=== PATIENT | female | born 1980 | race Caucasian/White ===

== ENCOUNTER 2022-08-25 13:55 | Inpatient (IN) | payer OTHER, SELFPAY ==
--- NOTE | ~2022-08-25 | XR_ITS ---
EXAMINATION: XR ABDOMEN KUB CLINICAL INDICATION: Constipation, distention. COMPARISON: None available. TECHNIQUE: AP view of the abdomen. FINDINGS: There is moderate stool seen in the colon without any significant distention. The small bowel loops are normal caliber. No gross bony abnormality seen. XR/XR KUB IMPRESSION: Moderate constipation. No acute process seen.
[2022-08-25 14:05] VITALS: BP 110/72; PULSE 98; O2SAT 98
[2022-08-25 14:21] VITALS: BP 127/82; PULSE 94; RESP 17; TEMP 36.6; O2SAT 98; BMI 26.4
--- NOTE | 2022-08-25 14:31 | ED_ITS ---
HPI - General Adult General Chief complaint: Psychiatric Symptoms <DELMY Fuentes - Last Filed: 08/25/22 17:54> Stated complaint: PSYCH EVAL <DELMY Fuentes - Last Filed: 08/25/22 17:54> Time Seen by Provider: 08/25/22 14:30 <DELMY Fuentes - Last Filed: 08/25/22 17:54> Source: patient and EMS <DELMY Fuentes - Last Filed: 08/25/22 17:54> Mode of arrival: EMS <DELMY Fuentes - Last Filed: 08/25/22 17:54> Limitations: other (patient cannot reliably answer questions) <DELMY Fuentes - Last Filed: 08/25/22 17:54> History of Present Illness HPI narrative: Patient is a 42 year old assigned female at presenting to the em ergency department today via EMS [place] Patient unable to coherently answer questions secondary to mood / behavior. <DELMY Fuentes - Last Filed: 08/25/22 17:54> Relieving factors: none <DELMY Fuentes - Last Filed: 08/25/22 17:54> Exacerbating factors: none <DELMY Fuentes - Last Filed: 08/25/22 17:54> Related Data Home medications: Home Medications Medication Instructions Recorded Confirmed diazepam 5 mg tablet 5 mg PO TID PRN Anxiety 08/25/22 08/25/22 escitalopram oxalate 10 mg tablet 10 mg PO DAILY 08/25/22 08/25/22 metformin 500 mg tablet 500 mg PO DAILY 08/25/22 08/25/22 paliperidone palmitate 39 mg/0.25 39 mg IM Q4W 08/25/22 08/25/22 mL intramuscular syringe (Invega Sustenna) valbenazine 80 mg capsule 80 mg PO DAILY 08/25/22 08/25/22 (Ingrezza) <DELMY Fuentes - Last Filed: 08/25/22 17:54> Allergies/adverse reactions: Allergies Allergy/AdvReac Type Severity Reaction Status Date / Time moxifloxacin [From Avelox] Allergy Diarrhea Verified 08/25/22 19:11 <DELMY Fuentes - Last Filed: 08/25/22 17:54> Review of Systems Review of Systems: Yes Other (patient unable to answer questions secondary to behavior / mood) <DELMY Fuentes - Last Filed: 08/25/22 17:54> Constitutional: Constitutional: Reports no additional constitutional comp laints, Denies chills, Denies fever(s) and Denies night sweats <DELMY Fuentes - Last Filed: 08/25/22 17:54> Eyes: Eyes: Reports no additional eye complaints, Denies blurry vision, Denies change in vision, Denies diplopia, Denies eye discharge, Denies loss of vision and Denies eye pain <DELMY Fuentes - Last Filed: 08/25/22 17:54> ENT: Denies dizziness <DELMY Fuentes - Last Filed: 08/25/22 17:54> Cardiovascular: Cardiovascular: Reports no additional cardiovascular complaints, Denies chest pain, Denies lightheadedness, Denies Loss of Consciousness and Denies dyspnea <DELMY Fuentes - Last Filed: 08/25/22 17:54> Respiratory: Respiratory: Reports no additional respiratory complaints and Denies dyspnea <DELMY Fuentes - Last Filed: 08/25/22 17:54> Gastrointestinal: Gastrointestinal: Reports no additional gastrointestinal complaints, Denies abdominal pain, Denies melena, Denies hematochezia, Denies change in bowel habits and Denies change in stool character <DELMY Fuentes - Last Filed: 08/25/22 17:54> Genitourinary: Genitourinary: Denies hematuria, Denies urinary frequency, Denies dysuria, Denies urinary incontinence, Denies urinary hesitancy and Denies urinary urgency <DELMY Fuentes - Last Filed: 08/25/22 17:54> Musculoskeletal: Musculoskeletal: Reports no additional musculoskeletal complaints, Denies numbness and Denies tingling <DELMY Fuentes - Last Filed: 08/25/22 17:54> Neurologic: Denies dizziness, Denies loss of vision, Denies numbness and Denies tingling <DELMY Fuentes - Last Filed: 08/25/22 17:54> Psychiatric: Psychiatric: Reports no additional psychiatric complaints <DELMY Fuentes - Last Filed: 08/25/22 17:54> Endocrine: Endocrine: Reports no additional endocrine complaints <DELMY Fuentes - Last Filed: 08/25/22 17:54> Hematologic/Lymphatic: Hematologic/Lymphatic: Reports no additional hematologic/lymphatic complaints <DELMY Fuentes - Last Filed: 08/25/22 17:54> Allergic/Immunologic: Allergic/Immunologic: Reports no additional allergic/immunologic complaints <DELMY Fuentes - Last Filed: 08/25/22 17:54> PMFSH Past Medical History Attestation statement: The following information was validated with the patient. <DELMY Fuentes - Last Filed: 08/25/22 17:54> Source: old records reviewed and nursing notes reviewed <DELMY Fuentes Filed: 08/25/22 17:54> Social History Social History: Social History Advance Directives: No Advance Directives Information Provided: No <DELMY Fuentes - Last Filed: 08/25/22 17:54> Physical Exam ED Vital Signs: Vital Signs - 24 hr 08/25/22 14:21 Temperature 98 F Pulse Rate 94 Respiratory Rate 17 Blood Pressure 127/82 Pulse Oximetry 98 Oxygen Delivery Method Room Air BMI result Body Mass Index 26.4 <DELMY Fuentes - Last Filed: 08/25/22 17:54> Vital Signs - 24 hr 08/25/22 14:21 Temperature 98 F Pulse Rate 94 Respiratory Rate 17 Blood Pressure 127/82 Pulse Oximetry 98 Oxygen Delivery Method Room Air BMI result Body Mass Index 26.4 <Juancarlos Goldstein MD - Last Filed: 08/25/22 22:17> Vital Signs - 24 hr 08/25/22 14:21 Temperature 98 F Pulse Rate 94 Respiratory Rate 17 Blood Pressure 127/82 Pulse Oximetry 98 Oxygen Delivery Method Room Air BMI result Body Mass Index 26.4 <Maulik Topete - Last Filed: 08/26/22 00:57> Const General: cooperative, no acute distress, alert and awake <DELMY Fuentes - Last Filed: 08/25/22 17:54> Nutritional Appearance: well nourished <DELMY Fuentes - Last Filed: 08/25/22 17:54> Orientation/consciousness: patient oriented x3 <Graciela Esposito MT - Last Filed: 08/25/22 17:54> Limitations: no limitations <Graciela Esposito MT - Last Filed: 08/25/22 17:54> HENMT Head: Yes normal to inspection and Yes atraumatic <Graciela Esposito MT - Last Filed: 08/25/22 17:54> Ears: hearing grossly normal bilaterally and external ears normal <Graciela Monrema MT - Last Filed: 08/25/22 17:54> General nose exam: Normal external nose present, no nasal discharge noted and no epistaxis <Graciela Monrema MT - Last Filed: 08/25/22 17:54> Face and sinus: Yes normal facial exam, No abrasion and No laceration <Graciela Monrema MT - Last Filed: 08/25/22 17:54> Mouth: Normal oral and palatal mucosa present, no drooling and no muffled voice <Graciela Monrema MT - Last Filed: 08/25/22 17:54> Eyes General: appearance normal, both eyes and all related structures <Graciela Monrema MT - Last Filed: 08/25/22 17:54> Periorbital: periorbital findings normal <Graciela Monrema MT - Last Filed: 08/25/22 17:54> Eyelids: Yes eyelids normal <Graciela Monrema MT - Last Filed: 08/25/22 17:54> Conjunctivae: conjunctivae normal <Graciela Monrema MT - Last Filed: 08/25/22 17:54> Pupils: Equal, round and reactive pupils present <Graciela Monrema MT - Last Filed: 08/25/22 17:54> EOM: EOMs intact bilaterally <Graciela Monrema MT - Last Filed: 08/25/22 17:54> Neck Neck: Yes normal visual inspection, Yes full ROM and Yes no lymphadenopathy <Graciela Monrema MT - Last Filed: 08/25/22 17:54> Chest Chest palpation & inspection: normal inspection of the chest <Graciela Esposito MT - Last Filed: 08/25/22 17:54> Resp Effort & Inspection: normal respiratory effort and able to speak in complete sentences <Graciela MonDELMY hodgson - Last Filed: 08/25/22 17:54> GI Inspection: Yes normal to inspection <Graciela MonDELMY hodgson - Last Filed: 08/25/22 17:54> Neuro General: patient oriented x3 and moves all extremities <Graciela MonDELMY hodgson - Last Filed: 08/25/22 17:54> Cranial nerves: Yes Equal, round and reactive pupils present <Gracielamatilde MonDELMY hodgson - Last Filed: 08/25/22 17:54> Cognition (Neuro): normal cognition <Graciela MonDELMY hodgson - Last Filed: 08/25/22 17:54> Motor exam (neuro): 5/5 motor strength present throughout <Graciela MonDELMY hodgson - Last Filed: 08/25/22 17:54> Sensory Exam: Normal double simultaneous stimulation for sensation <Graciela MonDELMY hodgson - Last Filed: 08/25/22 17:54> Coordination: [id number] test normal <Gracielamatilde MonDELMY hodgson - Last Filed: 08/25/22 17:54> Extrem General: Yes normal to inspection, Yes full ROM and Yes capillary refill normal <Graciela MonDELMY hodgson - Last Filed: 08/25/22 17:54> Psych Affect: Animated affect present <Gracielamatilde MonDELMY hodgson - Last Filed: 08/25/22 17:54> Attitude: Avoids eye contact (attititude/behavior) <Gracielamatilde MonDELMY hodgson - Last F iled: 08/25/22 17:54> Thought process: Confabulating thought process present, Flight of ideas present and Illogical thought process present <DELMY Fuentes - Last Filed: 08/25/22 17:54> Thought content: Derealization present <Graciela DELMY Esposito - Last Filed: 08/25/22 17:54> Insight: Limited insight present (Psych) <DELMY Fuentes - Last Filed: 08/25/22 17:54> Judgement: Limited judgement present (Psych) <Graciela DELMY Esposito - Last Filed: 08/25/22 17:54> Course Reevaluation(s) Reevaluation #1: I was asked to the patient by nursing staff as it was reported the patient was becoming quite labile and aggressive at times. When I was initially talked with the patient she was moderate like a child and then she would quickly snap in be aggressive and scream and cuss at staff. The patient was medicated for her safety and the safety of others around her. <Maulik Topete - Last Filed: 08/26/22 00:57> Time: 00:56 <Maulik Topete - Last Filed: 08/26/22 00:57> Medications Administered Discontinued Medications Generic Name Dose Route Start Last Admin Trade Name Freq PRN Reason Stop Dose Admin Olanzapine 10 mg 08/25/22 20:13 08/25/22 23:20 Olanzapine 10 Mg Tablet PO 08/25/22 20:14 Not Given ONCE ONE <DELMY Fuentes - Last Filed: 08/25/22 17:54> Medications Administered Discontinued Medications Generic Name Dose Route Start Last Admin Trade Name Freq PRN Reason Stop Dose Admin Olanzapine 10 mg 08/25/22 20:13 08/25/22 23:20 Olanzapine 10 Mg Tablet PO 08/25/22 20:14 Not Given ONCE ONE <Juancarlos Goldstein MD - Last Filed: 08/25/22 22:17> Medications Administered Discontinued Medications Generic Name Dose Route Start Last Admin Trade Name Freq PRN Reason Stop Dose Admin Olanzapine 10 mg 08/25/22 20:13 08/25/22 23:20 Olanzapine 10 Mg Tablet PO 08/25/22 20:14 Not Given ONCE ONE <Maulik Topete - Last Filed: 08/26/22 00:57> Medical Decision Making Medical Decision Making MDM Narrative: Patient's labs showed slightly elevated WBC count of 12.2, otherwise unremarkable. Patient currently awaiting CARE team evaluation. <DELMY Fuentes - Last Filed: 08/25/22 17:54> Patient's labs showed slightly elevated WBC count of 12.2, otherwise unremarkable. Patient currently awaiting CARE team evaluation. 2216: Start physician observation. The patient was evaluated by the care team. Patient was placed on a Section 12. The patient will be placed in physician observation and kept in the emergency department Behavior[facility] Unit until appropriate disposition can be determined. <Juancarlos Goldstein MD - Last Filed: 08/25/22 22:17> Differential Diagnosis Differential Diagnoses: The differential diagnosis associated with the presentation includes <DELMY Fuentes - Last Filed: 08/25/22 17:54> acute psychosis <DELMY Fuentes - Last Filed: 08/25/22 17:54> Lab Data MDM Lab Attestation statement: I reviewed the patient's lab results. <DELMY Fuentes - Last Filed: 08/25/22 17:54> Result Diagrams: 08/25/22 15:21 08/25/22 15:24 <DELMY Fuentes - Last Filed: 08/25/22 17:54> Labs: Lab Results 08/25/22 08/25/22 08/25/22 Range/Units 15:21 15:24 16:45 WBC 12.2 H (4.8-10.8) X10*3/uL RBC 4.68 (4.20-5.50) X10*6/uL Hgb 13.7 (12.0-16.0) g/dl Hct 40.1 (37.0-47.0) % MCV 85.7 (80.0-98.0) fL MCH 29.3 (27.0-33.0) pg MCHC 34.2 (31.0-35.0) g/dl RDW 12.2 (11.0-16.0) % Plt Count 262 (160-400) X10*3/uL MPV 9.1 L (9.4-12.3) fL Immature Gran % (Auto) 0.3 (0.0-0.4) % Neut % (Auto) 72.1 (45-73) % Lymph % (Auto) 20.0 (20-40) % [place] % (Auto) 6.8 (2-11) % Eos % (Auto) 0.5 (0-4) % Baso % (Auto) 0.3 (0-2) % Lymph # (Auto) 2.5 (1.2-4.9) X10*3/uL [place] # (Auto) 0.8 (0.1-1.2) X10*3/uL Eos # (Auto) 0.1 (0.0-0.4) X10*3/uL Baso # (Auto) 0.0 (0.0-0.2) X10*3/uL Abs Immat Gran (auto) 0.04 H (0.00-0.03) X10*3/uL Absolute Neuts (auto) 8.8 H (2.0-8.3) x10*3/uL Absolute Nucleated RBC 0.000 (0.0-0.012) X10*3/uL Nucleated RBC % (auto) 0.0 (0.0-0.2) /100WBC Sodium 143 (135-145) mmol/L Potassium 3.9 (3.3-5.1) mmol/L Chloride 109 H (96-108) mmol/L Carbon Dioxide 25 (22-29) mmol/L Anion Gap 13 (12-20) BUN 14 (9-16) mg/dL Creatinine 0.79 (0.5-1.4) mg/dL Estim Creat Clear Calc 75.8 Estimated GFR > 60 Random Glucose 100 (60-115) mg/dL Calcium 9.2 (8.4-10.2) mg/dL Total Bilirubin 0.5 (0.0-1.0) mg/dL AST 15 (5-31) U/L ALT 19 (0-31) U/L Alkaline Phosphatase 72 (39-117) U/L Total Protein 6.4 L (6.5-8.0) g/dL Albumin 4.1 (3.5-5.0) g/dL Urine Color Yellow Urine Appearance Clear Urine pH 5.5 (5.0-9.0) Ur Specific [place] >= 1.030 H (1.005-1.025) Urine Protein Negative (Neg-Trace) mg/dL Urine Glucose (UA) Negative (Negative) mg/dL Urine Ketones Trace (Negative) mg/dL Urine Blood Trace H (Negative) Urine Nitrite Negative (Negative) Ur Leukocyte Esterase Negative (Negative) Urine RBC 0-2 (0-2) /HPF Urine WBC 0-5 (0-5) /HPF Ur Squamous Epith Cells 3-5 (0-2) /HPF Urine Bacteria None Seen (None Seen) Hyaline Casts 0-2 (0-2) /LPF Urine Test (NEGATIVE) Salicylates < 5.0 L (15-30) mg/dL Urine Opiates Screen (Not Detect) Urine Fentanyl Screen (Not Detect) Acetaminophen < 17 (<30) mcg/mL Ur Barbiturates Screen (Not Detect) Ur Phencyclidine Scrn (Not Detect) Ur Amphetamines Screen (Not Detect) U Benzodiazepines Scrn (Not Detect) Urine Cocaine Screen (Not Detect) U Marijuana (THC) Screen (Not Detect) Ethyl Alcohol < 10 mg/dL COVID-19 (KEVIN) (Negative) COVID-19 Clin Com 08/25/22 08/25/22 08/25/22 Range/Units 16:45 16:45 16:49 WBC (4.8-10.8) X10*3/uL RBC (4.20-5.50) X10*6/uL Hgb (12.0-16.0) g/dl Hct (37.0-47.0) % MCV (80.0-98.0) fL MCH (27.0-33.0) pg MCHC (31.0-35.0) g/dl RDW (11.0-16.0) % Plt Count (160-400) X10*3/uL MPV (9.4-12.3) fL Immature Gran % (Auto) (0.0-0.4) % Neut % (Auto) (45-73) % Lymph % (Auto) (20-40) % [place] % (Auto) (2-11) % Eos % (Auto) (0-4) % Baso % (Auto) (0-2) % Lymph # (Auto) (1.2-4.9) X10*3/uL [place] # (Auto) (0.1-1.2) X10*3/uL Eos # (Auto) (0.0-0.4) X10*3/uL Baso # (Auto) (0.0-0.2) X10*3/uL Abs Immat Gran (auto) (0.00-0.03) X10*3/uL Absolute Neuts (auto) (2.0-8.3) x10*3/uL Absolute Nucleated RBC (0.0-0.012) X10*3/uL Nucleated RBC % (auto) (0.0-0.2) /100WBC Sodium (135-145) mmol/L Potassium (3.3-5.1) mmol/L Chloride (96-108) mmol/L Carbon Dioxide (22-29) mmol/L Anion Gap (12-20) BUN (9-16) mg/dL Creatinine (0.5-1.4) mg/dL Estim Creat Clear Calc Estimated GFR Random Glucose (60-115) mg/dL Calcium (8.4-10.2) mg/dL Total Bilirubin (0.0-1.0) mg/dL AST (5-31) U/L ALT (0-31) U/L Alkaline Phosphatase (39-117) U/L Total Protein (6.5-8.0) g/dL Albumin (3.5-5.0) g/dL Urine Color Urine Appearance Urine pH (5.0-9.0) Ur Specific [place] (1.005-1.025) Urine Protein (Neg-Trace) mg/dL Urine Glucose (UA) (Negative) mg/dL Urine Ketones (Negative) mg/dL Urine Blood (Negative) Urine Nitrite (Negative) Ur Leukocyte Esterase (Negative) Urine RBC (0-2) /HPF Urine WBC (0-5) /HPF Ur Squamous Epith Cells (0-2) /HPF Urine Bacteria (None Seen) Hyaline Casts (0-2) /LPF Urine Test NEGATIVE (NEGATIVE) Salicylates (15-30) mg/dL Urine Opiates Screen Not Detected (Not Detect) Urine Fentanyl Screen POSITIVE H (Not Detect) Acetaminophen (<30) mcg/mL Ur Barbiturates Screen Not Detected (Not Detect) Ur Phencyclidine Scrn Not Detected (Not Detect) Ur Amphetamines Screen Not Detected (Not Detect) U Benzodiazepines Scrn Not Detected (Not Detect) Urine Cocaine Screen Not Detected (Not Detect) U Marijuana (THC) Screen Not Detected (Not Detect) Ethyl Alcohol mg/dL COVID-19 (KEVIN) Negative (Negative) COVID-19 Clin Com See Note <DELMY Fuentes - Last Filed: 08/25/22 17:54> Lab Results 08/25/22 08/25/22 08/25/22 Range/Units 15:21 15:24 16:45 WBC 12.2 H (4.8-10.8) X10*3/uL RBC 4.68 (4.20-5.50) X10*6/uL Hgb 13.7 (12.0-16.0) g/dl Hct 40.1 (37.0-47.0) % MCV 85.7 (80.0-98.0) fL MCH 29.3 (27.0-33.0) pg MCHC 34.2 (31.0-35.0) g/dl RDW 12.2 (11.0-16.0) % Plt Count 262 (160-400) X10*3/uL MPV 9.1 L (9.4-12.3) fL Immature Gran % (Auto) 0.3 (0.0-0.4) % Neut % (Auto) 72.1 (45-73) % Lymph % (Auto) 20.0 (20-40) % [place] % (Auto) 6.8 (2-11) % Eos % (Auto) 0.5 (0-4) % Baso % (Auto) 0.3 (0-2) % Lymph # (Auto) 2.5 (1.2-4.9) X10*3/uL [place] # (Auto) 0.8 (0.1-1.2) X10*3/uL Eos # (Auto) 0.1 (0.0-0.4) X10*3/uL Baso # (Auto) 0.0 (0.0-0.2) X10*3/uL Abs Immat Gran (auto) 0.04 H (0.00-0.03) X10*3/uL Absolute Neuts (auto) 8.8 H (2.0-8.3) x10*3/uL Absolute Nucleated RBC 0.000 (0.0-0.012) X10*3/uL Nucleated RBC % (auto) 0.0 (0.0-0.2) /100WBC Sodium 143 (135-145) mmol/L Potassium 3.9 (3.3-5.1) mmol/L Chloride 109 H (96-108) mmol/L Carbon Dioxide 25 (22-29) mmol/L Anion Gap 13 (12-20) BUN 14 (9-16) mg/dL Creatinine 0.79 (0.5-1.4) mg/dL Estim Creat Clear Calc 75.8 Estimated GFR > 60 Random Glucose 100 (60-115) mg/dL Calcium 9.2 (8.4-10.2) mg/dL Total Bilirubin 0.5 (0.0-1.0) mg/dL AST 15 (5-31) U/L ALT 19 (0-31) U/L Alkaline Phosphatase 72 (39-117) U/L Total Protein 6.4 L (6.5-8.0) g/dL Albumin 4.1 (3.5-5.0) g/dL Urine Color Yellow Urine Appearance Clear Urine pH 5.5 (5.0-9.0) Ur Specific [place] >= 1.030 H (1.005-1.025) Urine Protein Negative (Neg-Trace) mg/dL Urine Glucose (UA) Negative (Negative) mg/dL Urine Ketones Trace (Negative) mg/dL Urine Blood Trace H (Negative) Urine Nitrite Negative (Negative) Ur Leukocyte Esterase Negative (Negative) Urine RBC 0-2 (0-2) /HPF Urine WBC 0-5 (0-5) /HPF Ur Squamous Epith Cells 3-5 (0-2) /HPF Urine Bacteria None Seen (None Seen) Hyaline Casts 0-2 (0-2) /LPF Urine Test (NEGATIVE) Salicylates < 5.0 L (15-30) mg/dL Urine Opiates Screen (Not Detect) Urine Fentanyl Screen (Not Detect) Acetaminophen < 17 (<30) mcg/mL Ur Barbiturates Screen (Not Detect) Ur Phencyclidine Scrn (Not Detect) Ur Amphetamines Screen (Not Detect) U Benzodiazepines Scrn (Not Detect) Urine Cocaine Screen (Not Detect) U Marijuana (THC) Screen (Not Detect) Ethyl Alcohol < 10 mg/dL COVID-19 (KEVIN) (Negative) COVID-19 Clin Com 08/25/22 08/25/22 08/25/22 Range/Units 16:45 16:45 16:49 WBC (4.8-10.8) X10*3/uL RBC (4.20-5.50) X10*6/uL Hgb (12.0-16.0) g/dl Hct (37.0-47.0) % MCV (80.0-98.0) fL MCH (27.0-33.0) pg MCHC (31.0-35.0) g/dl RDW (11.0-16.0) % Plt Count (160-400) X10*3/uL MPV (9.4-12.3) fL Immature Gran % (Auto) (0.0-0.4) % Neut % (Auto) (45-73) % Lymph % (Auto) (20-40) % [place] % (Auto) (2-11) % Eos % (Auto) (0-4) % Baso % (Auto) (0-2) % Lymph # (Auto) (1.2-4.9) X10*3/uL [place] # (Auto) (0.1-1.2) X10*3/uL Eos # (Auto) (0.0-0.4) X10*3/uL Baso # (Auto) (0.0-0.2) X10*3/uL Abs Immat Gran (auto) (0.00-0.03) X10*3/uL Absolute Neuts (auto) (2.0-8.3) x10*3/uL Absolute Nucleated RBC (0.0-0.012) X10*3/uL Nucleated RBC % (auto) (0.0-0.2) /100WBC Sodium (135-145) mmol/L Potassium (3.3-5.1) mmol/L Chloride (96-108) mmol/L Carbon Dioxide (22-29) mmol/L Anion Gap (12-20) BUN (9-16) mg/dL Creatinine (0.5-1.4) mg/dL Estim Creat Clear Calc Estimated GFR Random Glucose (60-115) mg/dL Calcium (8.4-10.2) mg/dL Total Bilirubin (0.0-1.0) mg/dL AST (5-31) U/L ALT (0-31) U/L Alkaline Phosphatase (39-117) U/L Total Protein (6.5-8.0) g/dL Albumin (3.5-5.0) g/dL Urine Color Urine Appearance Urine pH (5.0-9.0) Ur Specific [place] (1.005-1.025) Urine Protein (Neg-Trace) mg/dL Urine Glucose (UA) (Negative) mg/dL Urine Ketones (Negative) mg/dL Urine Blood (Negative) Urine Nitrite (Negative) Ur Leukocyte Esterase (Negative) Urine RBC (0-2) /HPF Urine WBC (0-5) /HPF Ur Squamous Epith Cells (0-2) /HPF Urine Bacteria (None Seen) Hyaline Casts (0-2) /LPF Urine Test NEGATIVE (NEGATIVE) Salicylates (15-30) mg/dL Urine Opiates Screen Not Detected (Not Detect) Urine Fentanyl Screen POSITIVE H (Not Detect) Acetaminophen (<30) mcg/mL Ur Barbiturates Screen Not Detected (Not Detect) Ur Phencyclidine Scrn Not Detected (Not Detect) Ur Amphetamines Screen Not Detected (Not Detect) U Benzodiazepines Scrn Not Detected (Not Detect) Urine Cocaine Screen Not Detected (Not Detect) U Marijuana (THC) Screen Not Detected (Not Detect) Ethyl Alcohol mg/dL COVID-19 (KEVIN) Negative (Negative) COVID-19 Clin Com See Note <Juancarlos Goldstein MD - Last Filed: 08/25/22 22:17> Lab Results 08/25/22 08/25/22 08/25/22 Range/Units 15:21 15:24 16:45 WBC 12.2 H (4.8-10.8) X10*3/uL RBC 4.68 (4.20-5.50) X10*6/uL Hgb 13.7 (12.0-16.0) g/dl Hct 40.1 (37.0-47.0) % MCV 85.7 (80.0-98.0) fL MCH 29.3 (27.0-33.0) pg MCHC 34.2 (31.0-35.0) g/dl RDW 12.2 (11.0-16.0) % Plt Count 262 (160-400) X10*3/uL MPV 9.1 L (9.4-12.3) fL Immature Gran % (Auto) 0.3 (0.0-0.4) % Neut % (Auto) 72.1 (45-73) % Lymph % (Auto) 20.0 (20-40) % [place] % (Auto) 6.8 (2-11) % Eos % (Auto) 0.5 (0-4) % Baso % (Auto) 0.3 (0-2) % Lymph # (Auto) 2.5 (1.2-4.9) X10*3/uL [place] # (Auto) 0.8 (0.1-1.2) X10*3/uL Eos # (Auto) 0.1 (0.0-0.4) X10*3/uL Baso # (Auto) 0.0 (0.0-0.2) X10*3/uL Abs Immat Gran (auto) 0.04 H (0.00-0.03) X10*3/uL Absolute Neuts (auto) 8.8 H (2.0-8.3) x10*3/uL Absolute Nucleated RBC 0.000 (0.0-0.012) X10*3/uL Nucleated RBC % (auto) 0.0 (0.0-0.2) /100WBC Sodium 143 (135-145) mmol/L Potassium 3.9 (3.3-5.1) mmol/L Chloride 109 H (96-108) mmol/L Carbon Dioxide 25 (22-29) mmol/L Anion Gap 13 (12-20) BUN 14 (9-16) mg/dL Creatinine 0.79 (0.5-1.4) mg/dL Estim Creat Clear Calc 75.8 Estimated GFR > 60 Random Glucose 100 (60-115) mg/dL Calcium 9.2 (8.4-10.2) mg/dL Total Bilirubin 0.5 (0.0-1.0) mg/dL AST 15 (5-31) U/L ALT 19 (0-31) U/L Alkaline Phosphatase 72 (39-117) U/L Total Protein 6.4 L (6.5-8.0) g/dL Albumin 4.1 (3.5-5.0) g/dL Urine Color Yellow Urine Appearance Clear Urine pH 5.5 (5.0-9.0) Ur Specific [place] >= 1.030 H (1.005-1.025) Urine Protein Negative (Neg-Trace) mg/dL Urine Glucose (UA) Negative (Negative) mg/dL Urine Ketones Trace (Negative) mg/dL Urine Blood Trace H (Negative) Urine Nitrite Negative (Negative) Ur Leukocyte Esterase Negative (Negative) Urine RBC 0-2 (0-2) /HPF Urine WBC 0-5 (0-5) /HPF Ur Squamous Epith Cells 3-5 (0-2) /HPF Urine Bacteria None Seen (None Seen) Hyaline Casts 0-2 (0-2) /LPF Urine Test (NEGATIVE) Salicylates < 5.0 L (15-30) mg/dL Urine Opiates Screen (Not Detect) Urine Fentanyl Screen (Not Detect) Acetaminophen < 17 (<30) mcg/mL Ur Barbiturates Screen (Not Detect) Ur Phencyclidine Scrn (Not Detect) Ur Amphetamines Screen (Not Detect) U Benzodiazepines Scrn (Not Detect) Urine Cocaine Screen (Not Detect) U Marijuana (THC) Screen (Not Detect) Ethyl Alcohol < 10 mg/dL COVID-19 ([facility]) (Negative) COVID-19 Clin Com 08/25/22 08/25/22 08/25/22 Range/Units 16:45 16:45 16:49 WBC (4.8-10.8) X10*3/uL RBC (4.20-5.50) X10*6/uL Hgb (12.0-16.0) g/dl Hct (37.0-47.0) % MCV (80.0-98.0) fL MCH (27.0-33.0) pg MCHC (31.0-35.0) g/dl RDW (11.0-16.0) % Plt Count (160-400) X10*3/uL MPV (9.4-12.3) fL Immature Gran % (Auto) (0.0-0.4) % Neut % (Auto) (45-73) % Lymph % (Auto) (20-40) % [place] % (Auto) (2-11) % Eos % (Auto) (0-4) % Baso % (Auto) (0-2) % Lymph # (Auto) (1.2-4.9) X10*3/uL [place] # (Auto) (0.1-1.2) X10*3/uL Eos # (Auto) (0.0-0.4) X10*3/uL Baso # (Auto) (0.0-0.2) X10*3/uL Abs Immat Gran (auto) (0.00-0.03) X10*3/uL Absolute Neuts (auto) (2.0-8.3) x10*3/uL Absolute Nucleated RBC (0.0-0.012) X10*3/uL Nucleated RBC % (auto) (0.0-0.2) /100WBC Sodium (135-145) mmol/L Potassium (3.3-5.1) mmol/L Chloride (96-108) mmol/L Carbon Dioxide (22-29) mmol/L Anion Gap (12-20) BUN (9-16) mg/dL Creatinine (0.5-1.4) mg/dL Estim Creat Clear Calc Estimated GFR Random Glucose (60-115) mg/dL Calcium (8.4-10.2) mg/dL Total Bilirubin (0.0-1.0) mg/dL AST (5-31) U/L ALT (0-31) U/L Alkaline Phosphatase (39-117) U/L Total Protein (6.5-8.0) g/dL Albumin (3.5-5.0) g/dL Urine Color Urine Appearance Urine pH (5.0-9.0) Ur Specific [place] (1.005-1.025) Urine Protein (Neg-Trace) mg/dL Urine Glucose (UA) (Negative) mg/dL Urine Ketones (Negative) mg/dL Urine Blood (Negative) Urine Nitrite (Negative) Ur Leukocyte Esterase (Negative) Urine RBC (0-2) /HPF Urine WBC (0-5) /HPF Ur Squamous Epith Cells (0-2) /HPF Urine Bacteria (None Seen) Hyaline Casts (0-2) /LPF Urine Test NEGATIVE (NEGATIVE) Salicylates (15-30) mg/dL Urine Opiates Screen Not Detected (Not Detect) Urine Fentanyl Screen POSITIVE H (Not Detect) Acetaminophen (<30) mcg/mL Ur Barbiturates Screen Not Detected (Not Detect) Ur Phencyclidine Scrn Not Detected (Not Detect) Ur Amphetamines Screen Not Detected (Not Detect) U Benzodiazepines Scrn Not Detected (Not Detect) Urine Cocaine Screen Not Detected (Not Detect) U Marijuana (THC) Screen Not Detected (Not Detect) Ethyl Alcohol mg/dL COVID-19 (KEVIN) Negative (Negative) COVID-19 Clin Com See Note <Maulik Topete - Last Filed: 08/26/22 00:57> Discharge Plan Discharge Clinical Impression: Acute psychosis <DELMY Fuentes - Last Filed: 08/25/22 17:54> Patient Disposition: Still a Patient <DELMY Fuentes - Last Filed: 08/25/22 17:54> Prescriptions: No Action metformin 500 mg tablet 500 mg PO DAILY diazepam 5 mg tablet 5 mg PO TID PRN (Reason: Anxiety) escitalopram oxalate 10 mg tablet 10 mg PO DAILY Invega Sustenna 39 mg/0.25 mL syringe 39 mg IM Q4W Ingrezza 80 mg capsule 80 mg PO DAILY <DELMY Fuentes - Last Filed: 08/25/22 17:54>
[2022-08-25 15:35] LABS: MANUAL DIFF FLAG NO
[2022-08-25 15:36] LABS: Basophils Percent Auto 0.3 % (0-2); Eosinophils Absolute Auto 0.1 X10*3/uL (0.0-0.4); Eosinophils Percent Auto 0.5 % (0-4); Hematocrit 40.1 % (37.0-47.0); Hemoglobin 13.7 g/dl (12.0-16.0); Imm Gran Abs Auto 0.04 X10*3/uL (0.00-0.03); Imm Gran Pct Auto 0.3 % (0.0-0.4); Lymphocytes Absolute Auto 2.5 X10*3/uL (1.2-4.9); Mean Corpuscular HGB Conc 34.2 g/dl (31.0-35.0); Mean Corpuscular Hemoglobin 29.3 pg (27.0-33.0); Mean Corpuscular Volume 85.7 fL (80.0-98.0); Mean Platelet Volume 9.1 fL (9.4-12.3); Monocytes Absolute Auto 0.8 X10*3/uL (0.1-1.2); Monocytes Percent Auto 6.8 % (2-11); Neutrophils Absolute Auto 8.8 x10*3/uL (2.0-8.3); Neutrophils Percent Auto 72.1 % (45-73); Platelet Count 262 X10*3/uL (160-400); Red Blood Count 4.68 X10*6/uL (4.20-5.50); Red Cell Distribution Width 12.2 % (11.0-16.0); White Blood Count 12.2 X10*3/uL (4.8-10.8)
[2022-08-25 15:57] LABS: Alanine Aminotransferase 19 U/L (0-31); Albumin Level 4.1 g/dL (3.5-5.0); Alkaline Phosphatase 72 U/L (39-117); Anion Gap 13 (12-20); Aspartate Amino Transferase 15 U/L (5-31); Bilirubin Total 0.5 mg/dL (0.0-1.0); Blood Urea Nitrogen 14 mg/dL (9-16); Calcium 9.2 mg/dL (8.4-10.2); Carbon Dioxide 25 mmol/L (22-29); Chloride 109 mmol/L (96-108); Creatinine Clr Calc Pharmacy 75.8; Estimated Glomerular Filt Rate > 60; Ethanol < 10 mg/dL; Glucose Random 100 mg/dL (60-115); Potassium 3.9 mmol/L (3.3-5.1); Salicylate < 5.0 mg/dL (15-30); Sodium 143 mmol/L (135-145); Total Protein 6.4 g/dL (6.5-8.0)
--- NOTE | 2022-08-25 16:13 | PC.NURSE ---
Pt appears tearful, babbling nonsensically to herself in her room. Has attempted to strip naked a few times with successful re-direction.
[2022-08-25 16:37] LABS: Acetaminophen LAB < 17 mcg/mL (<30)
[2022-08-25 17:09] LABS: Appearance Urine Clear; Color Urine Yellow; Glucose Urine UA Negative (Negative); Leukocyte Esterase Urine Negative (Negative); Nitrite Urine Negative (Negative); PH 5.5 (5.0-9.0); Specific Gravity - Urine >= 1.030 (1.005-1.025); UMIC TRIGGER UA YES; Urine Blood Trace (Negative); Urine Ketones Trace mg/dL (Negative); Urine Protein Negative (Neg-Trace)
[2022-08-25 17:10] LABS: UPreg QC Valid YES; Urine Pregnancy NEGATIVE (NEGATIVE)
[2022-08-25 17:15] LABS: Bacteria Urine None Seen (None Seen); Hyaline Casts Urine 0-2 /LPF (0-2); RBC Urine 0-2 /HPF (0-2); WBC Urine 0-5 /HPF (0-5)
[2022-08-25 17:16] LABS: Amphetamine Screen Urine Not Detected (Not Detect); Barbiturates, Urine Not Detected (Not Detect); Benzodiazepines Screen Urine Not Detected (Not Detect); Cannabinoid Screen Urine Not Detected (Not Detect); Cocaine Screen Urine Not Detected (Not Detect); Fentanyl, urine POSITIVE (Not Detect); Opiate Screen Urine Not Detected (Not Detect); Phencyclidine Screen Urine Not Detected (Not Detect)
--- NOTE | 2022-08-25 17:17 | PC.NURSE ---
Pt continues to mumble to herself. Attempting to leave unit, redirected back to common area. Often intruding into other patient's personal space, redirected to sit down in chair away from other patients.
[2022-08-25 17:30] LABS: COVID-19 Test Negative (Negative); IDNOW Serial# 08D9AD1C
[2022-08-26] VITALS (7 sets, daily range): BP systolic 116–141; BP diastolic 76–91; PULSE 73–83; RESP 16–17; TEMP 36.6–36.7; O2SAT 99
--- NOTE | 2022-08-26 | ECG_ITS ---
Test Reason : PSYCH MEDS Blood Pressure : / mmHG Vent. Rate : 083 BPM Atrial Rate : 083 BPM P-R Int : 114 ms QRS Dur : 064 ms QT Int : 340 ms P-R-T Axes : 051 055 021 degrees QTc Int : 399 ms Normal sinus rhythm Normal ECG No previous ECGs available Referred By: Silvia Fallon Electronically Signed By:THERESA MCKEON
[2022-08-26] MEDS: LORazepam 2 MG/ML VIAL IM (01:00)
[2022-08-26] MEDS: Haloperidol Lactate 5 MG/ML VIAL IM ×2 (01:00→07:34)
--- NOTE | 2022-08-26 01:11 | PC.NURSE ---
Patient exhibits increased aggression, combative with staff member, verbally abusive towards staff member, thought content paranoid, thought process disorganize and tangential, loud and disruptive, actively self dialoguing, continously refuinf PO medication, provider notified/ordered/Ativan 2 mg IM and Haldol 5 mg IM/administered at 0100 pending effect, patient is on 1:1 safety protocol, VSS, Patient was assessed by care team, disposition section 12 inpatient bed search, will continue to monitor.
--- NOTE | 2022-08-26 06:10 | PC.NURSE ---
Patient just woke up, intermittently yelling screaming, behavior redirectable, disposition is section 12 inpatient bed search per care team, VSS, will continue to monitor.
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
[2022-08-26] MEDS: LORazepam 2 MG/ML VIAL 1 MG IM ×2 (07:35)
--- NOTE | 2022-08-26 08:10 | PC.NURSE ---
Behavior improved post medication still needs some redirection will CTM
--- NOTE | 2022-08-26 08:26 | PC.NURSE ---
Care team at bedside attempting to talk to patient will CTM
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
[2022-08-27] MEDS: Paliperidone ER 3 MG TAB.ER.24 PO ×2 (08:21→17:35)
--- NOTE | 2022-08-27 09:10 | PC.NURSE ---
Pt was placed on 5 minute safety checks due to intrusive behaviors.
[2022-08-27] MEDS: metFORMIN HCl 500 MG TABLET PO (11:26)
[2022-08-27] MEDS: OLANZapine 5 MG TABLET PO (11:26)
[2022-08-27] MEDS: diazePAM 5 MG TABLET PO ×2 (12:22→17:35)
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
[2022-08-27] MEDS: OLANZapine 10 MG VIAL IM (15:05)
[2022-08-27] MEDS: LORazepam 2 MG/ML VIAL IM (15:06)
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
[2022-08-28] MEDS: OLANZapine 10 MG VIAL IM (07:15)
[2022-08-28] MEDS: LORazepam 2 MG/ML VIAL IM (07:17)
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
[2022-08-28] MEDS: chlorproMAZINE HCl 25 MG TABLET 50 MG PO (16:05)
[2022-08-28 16:25] VITALS: BP 121/75; PULSE 84
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
[2022-08-29 08:45] VITALS: RESP 18
[2022-08-29] MEDS: chlorproMAZINE HCl 25 MG TABLET 50 MG PO (17:57)
[2022-08-29] MEDS: Paliperidone ER 3 MG TAB.ER.24 PO (17:57)
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
[2022-08-30 08:00] VITALS: RESP 18
[2022-08-30] MEDS: chlorproMAZINE HCl 25 MG TABLET 50 MG PO ×3 (11:52→23:01)
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
[2022-08-30 18:00] VITALS: BP 104/63; PULSE 77; RESP 16; TEMP 35.7; O2SAT 99
[2022-08-30] MEDS: Paliperidone ER 3 MG TAB.ER.24 PO (23:01)
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
--- NOTE | 2022-08-31 08:34 | PC.NURSE ---
Addendum entered by Mariama Cannon RN 08/31/22 08:37: pt refused AM vitals Original Note: pt refused all AM medications
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
[2022-08-31 15:50] VITALS: TEMP 36.6
[2022-08-31] MEDS: Nicotine Polacrilex 2 MG GUM 4 MG BUCCAL ×3 (17:25→22:41)
--- NOTE | 2022-09-01 08:24 | PC.NURSE ---
pt refused morning vitals and scheduled medications. F*ck off, I'm not taking that sh*it dumb b*itch .
[2022-09-01] MEDS: chlorproMAZINE HCl 25 MG TABLET 50 MG PO (11:27)
[2022-09-01] MEDS: metFORMIN HCl 500 MG TABLET PO (11:28)
[2022-09-01] MEDS: Paliperidone ER 3 MG TAB.ER.24 PO (11:28)
[2022-09-01] MEDS: Divalproex Sodium ER 250 MG TAB.ER.24H 750 MG PO (11:28)
[2022-09-01] MEDS: Nicotine Polacrilex 2 MG GUM 4 MG BUCCAL (13:26)
--- NOTE | 2022-09-01 13:30 | PC.NURSE ---
pt requested nicotine gum and snatched package from nurses hand and walked back to room. Pt was followed to room and nicotine gum package was found on table and was removed. Pt then walked out of room completely naked and stood in [place] outside asking for the nicotine gum back. pt was directed to return to room and nicotine gum would be given. Pt was redirectable and agreeable although shouting fuck you, dumb bitch, what are you the gum natzi?
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
[2022-09-01] MEDS: OLANZapine ODT 10 MG TAB.RAPDIS 20 MG TRANSLINGU (17:32)
[2022-09-02] MEDS: chlorproMAZINE HCl 25 MG TABLET 50 MG PO ×2 (09:59→13:41)
[2022-09-02] MEDS: diazePAM 5 MG TABLET PO ×2 (10:00→13:41)
[2022-09-02] MEDS: metFORMIN HCl 500 MG TABLET PO (10:00)
[2022-09-02] MEDS: Nicotine Polacrilex 2 MG GUM 4 MG BUCCAL ×5 (10:05→22:05)
[2022-09-02] MEDS: LORazepam 2 MG/ML VIAL IM (10:20)
[2022-09-02] MEDS: diphenhydrAMINE HCL 50 MG/ML VIAL IM (10:21)
[2022-09-02] MEDS: Haloperidol Lactate 5 MG/ML VIAL IM (10:21)
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
[2022-09-02] MEDS: Paliperidone ER 3 MG TAB.ER.24 PO (10:44)
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
[2022-09-02] MEDS: OLANZapine ODT 10 MG TAB.RAPDIS TRANSLINGU ×2 (13:42→20:08)
[2022-09-02] MEDS: traZODone HCL 50 MG TABLET PO (20:07)
[2022-09-02 21:04] VITALS: BP 116/78; PULSE 76; RESP 16; TEMP 36.7; O2SAT 98
[2022-09-03] MEDS: diazePAM 5 MG TABLET PO ×2 (00:47→07:56)
[2022-09-03] MEDS: chlorproMAZINE HCl 25 MG TABLET 50 MG PO ×2 (00:47→04:20)
[2022-09-03] MEDS: traZODone HCL 50 MG TABLET PO ×2 (01:39→22:28)
[2022-09-03] MEDS: Nicotine Polacrilex 2 MG GUM 4 MG BUCCAL ×3 (04:23→10:38)
--- NOTE | 2022-09-03 04:29 | PC.NURSE ---
Pt woke at 04:25, was verbally abusive to staff and requested meds. pt took po prn and was offered nicotine gum which she threw at RN and took after it was picked up.
[2022-09-03] MEDS: OLANZapine ODT 10 MG TAB.RAPDIS TRANSLINGU ×2 (07:56→22:28)
[2022-09-03] MEDS: metFORMIN HCl 500 MG TABLET PO (07:56)
[2022-09-03 08:30] VITALS: PULSE 102; TEMP 36.1; O2SAT 100
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
[2022-09-03] MEDS: LORazepam 1 MG TABLET 2 MG PO (16:54)
[2022-09-04 06:00] VITALS: RESP 18
[2022-09-04] MEDS: HaloperidoL 5 MG TABLET PO ×2 (07:45→13:49)
[2022-09-04] MEDS: diazePAM 5 MG TABLET PO ×2 (07:45→13:49)
[2022-09-04] MEDS: OLANZapine ODT 10 MG TAB.RAPDIS TRANSLINGU ×2 (07:45→19:45)
[2022-09-04] MEDS: Nicotine Polacrilex 2 MG GUM 4 MG BUCCAL ×5 (08:23→19:46)
[2022-09-04] MEDS: LORazepam 1 MG TABLET 2 MG PO ×2 (08:30→19:45)
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
[2022-09-04] MEDS: OLANZapine ODT 10 MG TAB.RAPDIS 5 MG TRANSLINGU (12:03)
[2022-09-04 16:46] VITALS: RESP 16
[2022-09-04] MEDS: traZODone HCL 50 MG TABLET PO (19:46)
[2022-09-04] MEDS: chlorproMAZINE HCl 25 MG TABLET 50 MG PO (19:46)
[2022-09-05 06:00] VITALS: BP 129/78; PULSE 101; RESP 15; TEMP 36.2; O2SAT 99
[2022-09-05] MEDS: OLANZapine ODT 10 MG TAB.RAPDIS TRANSLINGU (08:15)
[2022-09-05] MEDS: metFORMIN HCl 500 MG TABLET PO (08:15)
--- NOTE | 2022-09-05 08:43 | PC.NURSE ---
Pt initially refused zyprexa and metformin throwing them in the trash. Pt accepted her depakote. Approx 10-15 mins later when t/w was obtaining pt's VS, pt asked for her pills at which time pt took both pills.
[2022-09-05] MEDS: Nicotine Polacrilex 2 MG GUM 4 MG BUCCAL ×2 (09:34→20:13)
[2022-09-05] MEDS: LORazepam 1 MG TABLET 2 MG PO (11:31)
[2022-09-05] MEDS: chlorproMAZINE HCl 25 MG TABLET 50 MG PO (11:31)
--- NOTE | 2022-09-05 11:33 | PC.NURSE ---
Pt requesting her prns and then becoming agitated that both PRNs were 2 pills You're going to overdose me I only want 1 this RN tried to explain the doses are all or nothing and cannot be split. Pt took both ativan pills, only took one thorazine pill, refused second pill only receiving 25mg of thorazine instead of the 50mg.
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
[2022-09-05] MEDS: OLANZapine ODT 10 MG TAB.RAPDIS 15 MG TRANSLINGU (18:58)
[2022-09-06] MEDS: Acetaminophen 325 MG TABLET 650 MG PO (04:48)
[2022-09-06 06:00] VITALS: BP 128/68; PULSE 78; RESP 18; TEMP 37; O2SAT 98
[2022-09-06] MEDS: OLANZapine ODT 10 MG TAB.RAPDIS 15 MG TRANSLINGU ×2 (08:40→17:24)
[2022-09-06] MEDS: chlorproMAZINE HCl 25 MG TABLET 50 MG PO (09:24)
[2022-09-06] MEDS: diazePAM 5 MG TABLET PO ×2 (09:25→19:25)
[2022-09-06 09:34] LABS: Creatinine Clr Calc Pharmacy 65.1; Estimated Glomerular Filt Rate > 60
[2022-09-06] MEDS: chlorproMAZINE HCl 100 MG TABLET PO (11:40)
[2022-09-06] MEDS: Nicotine Polacrilex 2 MG GUM 4 MG BUCCAL (13:03)
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
[2022-09-06] MEDS: LORazepam 1 MG TABLET 2 MG PO (19:25)
[2022-09-07] MEDS: traZODone HCL 50 MG TABLET PO (03:32)
[2022-09-07 08:35] VITALS: BP 122/88; PULSE 102; RESP 18; TEMP 36.1; O2SAT 99
[2022-09-07] MEDS: OLANZapine ODT 10 MG TAB.RAPDIS 15 MG TRANSLINGU (08:42)
[2022-09-07] MEDS: metFORMIN HCl 500 MG TABLET PO (08:42)
[2022-09-07] MEDS: LORazepam 1 MG TABLET 2 MG PO (10:14)
[2022-09-07] MEDS: diazePAM 5 MG TABLET PO (12:13)
[2022-09-07] MEDS: chlorproMAZINE HCl 100 MG TABLET PO (13:25)
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
--- NOTE | 2022-09-07 23:54 | PC.NURSE ---
This keno writer/runner tried to wake patient up for her HS medications, but patient was sound asleep.
[2022-09-08] MEDS: OLANZapine ODT 10 MG TAB.RAPDIS 15 MG TRANSLINGU ×3 (01:57→16:16)
[2022-09-08 08:25] VITALS: BP 116/73; PULSE 99; RESP 16; TEMP 36.7; O2SAT 98
[2022-09-08] MEDS: Nicotine Polacrilex 2 MG GUM 4 MG BUCCAL ×2 (09:11→11:45)
[2022-09-08] MEDS: LORazepam 1 MG TABLET 2 MG PO (09:32)
[2022-09-08] MEDS: diazePAM 5 MG TABLET PO (09:40)
--- NOTE | 2022-09-08 09:41 | PC.NURSE ---
Patient took 1mg of 2mg ordered PRN dose and was witnessed intentionally vomiting it up.
[2022-09-08] MEDS: chlorproMAZINE HCl 100 MG TABLET PO (10:11)
[2022-09-08] MEDS: Acetaminophen 325 MG TABLET 650 MG PO (12:35)
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
[2022-09-09 06:00] VITALS: RESP 16
[2022-09-09] MEDS: OLANZapine ODT 10 MG TAB.RAPDIS 15 MG TRANSLINGU ×2 (08:25→18:14)
[2022-09-09] MEDS: chlorproMAZINE HCl 25 MG TABLET PO ×3 (08:25→16:21)
[2022-09-09] MEDS: diazePAM 5 MG TABLET PO (08:25)
[2022-09-09] MEDS: Nicotine Polacrilex 2 MG GUM 4 MG BUCCAL ×4 (09:19→21:28)
[2022-09-09] MEDS: chlorproMAZINE HCl 100 MG TABLET PO (11:52)
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
[2022-09-09 16:53] VITALS: RESP 16
[2022-09-09] MEDS: chlorproMAZINE HCl 25 MG TABLET 50 MG PO (18:20)
[2022-09-10 08:06] VITALS: BP 125/73; PULSE 97; RESP 16; TEMP 36.8; O2SAT 99
[2022-09-10] MEDS: chlorproMAZINE HCl 25 MG TABLET 50 MG PO ×2 (08:30→18:26)
[2022-09-10] MEDS: OLANZapine ODT 10 MG TAB.RAPDIS 15 MG TRANSLINGU ×2 (08:31→17:43)
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
[2022-09-10] MEDS: Acetaminophen 325 MG TABLET 650 MG PO ×2 (13:12→19:48)
[2022-09-10] MEDS: chlorproMAZINE HCl 100 MG TABLET PO (13:29)
[2022-09-10 15:48] VITALS: BP 111/67; PULSE 108
[2022-09-10] MEDS: Nicotine Polacrilex 2 MG GUM 4 MG BUCCAL ×2 (17:44→18:26)
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
[2022-09-11 08:18] VITALS: BP 124/72; PULSE 99; RESP 16; TEMP 36.3; O2SAT 97
[2022-09-11] MEDS: OLANZapine ODT 10 MG TAB.RAPDIS 15 MG TRANSLINGU ×2 (08:20→17:29)
[2022-09-11] MEDS: chlorproMAZINE HCl 25 MG TABLET 50 MG PO ×2 (08:20→17:29)
[2022-09-11] MEDS: Nicotine Polacrilex 2 MG GUM 4 MG BUCCAL (11:05)
[2022-09-11 16:09] VITALS: BP 119/74; PULSE 98
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
[2022-09-12 08:04] VITALS: BP 129/77; PULSE 111; RESP 20; TEMP 36.1; O2SAT 99
[2022-09-12] MEDS: chlorproMAZINE HCl 25 MG TABLET 50 MG PO ×3 (08:11→16:22)
[2022-09-12] MEDS: OLANZapine ODT 10 MG TAB.RAPDIS 15 MG TRANSLINGU ×2 (08:11→16:22)
[2022-09-12] MEDS: Nicotine Polacrilex 2 MG GUM 4 MG BUCCAL ×5 (09:38→19:16)
[2022-09-12] MEDS: Acetaminophen 325 MG TABLET 650 MG PO ×2 (11:17→18:27)
[2022-09-12] MEDS: chlorproMAZINE HCl 100 MG TABLET PO (11:37)
[2022-09-12] MEDS: diazePAM 5 MG TABLET PO (13:18)
[2022-09-13] MEDS: Nicotine Polacrilex 2 MG GUM 4 MG BUCCAL ×2 (06:49→10:39)
[2022-09-13] MEDS: chlorproMAZINE HCl 25 MG TABLET 50 MG PO ×3 (07:55→19:06)
[2022-09-13] MEDS: OLANZapine ODT 10 MG TAB.RAPDIS 15 MG TRANSLINGU ×2 (07:56→19:07)
[2022-09-13 08:59] LABS: Creatinine Clr Calc Pharmacy 67.3; Estimated Glomerular Filt Rate > 60
[2022-09-13] MEDS: Acetaminophen 325 MG TABLET 650 MG PO (10:38)
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
[2022-09-13] MEDS: diazePAM 5 MG TABLET PO (13:24)
[2022-09-13 13:26] VITALS: BP 123/68; PULSE 111; RESP 18; TEMP 36.4; O2SAT 99
[2022-09-14 07:49] VITALS: BP 117/76; PULSE 91; RESP 16; TEMP 36.8; O2SAT 98
[2022-09-14] MEDS: chlorproMAZINE HCl 25 MG TABLET 50 MG PO ×3 (08:08→19:57)
[2022-09-14] MEDS: OLANZapine ODT 10 MG TAB.RAPDIS 15 MG TRANSLINGU ×3 (08:08→20:49)
[2022-09-14 09:08] LABS: MANUAL DIFF FLAG NO
[2022-09-14 09:19] LABS: Basophils Percent Auto 0.4 % (0-2); Eosinophils Absolute Auto 0.2 X10*3/uL (0.0-0.4); Eosinophils Percent Auto 2.2 % (0-4); Hematocrit 42.6 % (37.0-47.0); Hemoglobin 14.2 g/dl (12.0-16.0); Imm Gran Abs Auto 0.08 X10*3/uL (0.00-0.03); Lymphocytes Absolute Auto 1.9 X10*3/uL (1.2-4.9); Lymphocytes Percent Auto 24.1 % (20-40); Mean Corpuscular HGB Conc 33.3 g/dl (31.0-35.0); Mean Corpuscular Volume 90.1 fL (80.0-98.0); Mean Platelet Volume 9.9 fL (9.4-12.3); Monocytes Absolute Auto 0.7 X10*3/uL (0.1-1.2); Monocytes Percent Auto 8.8 % (2-11); Neutrophils Absolute Auto 5.1 x10*3/uL (2.0-8.3); Neutrophils Percent Auto 63.5 % (45-73); Platelet Count 284 X10*3/uL (160-400); Red Blood Count 4.73 X10*6/uL (4.20-5.50); Red Cell Distribution Width 13.1 % (11.0-16.0)
[2022-09-14 09:48] LABS: Valproate 102.4 mcg/mL (50.0-100.0)
[2022-09-14 09:51] LABS: Alanine Aminotransferase 46 U/L (0-31); Albumin Level 4.5 g/dL (3.5-5.0); Alkaline Phosphatase 77 U/L (39-117); Anion Gap 14 (12-20); Aspartate Amino Transferase 23 U/L (5-31); Bilirubin Total 0.2 mg/dL (0.0-1.0); Blood Urea Nitrogen 16 mg/dL (9-16); Calcium 9.6 mg/dL (8.4-10.2); Carbon Dioxide 26 mmol/L (22-29); Chloride 106 mmol/L (96-108); Creatinine Clr Calc Pharmacy 72.2; Estimated Glomerular Filt Rate > 60; Glucose Random 109 mg/dL (60-115); Potassium 4.4 mmol/L (3.3-5.1); Sodium 142 mmol/L (135-145); Total Protein 7.1 g/dL (6.5-8.0)
[2022-09-14] MEDS: Acetaminophen 325 MG TABLET 650 MG PO ×2 (10:32→12:24)
[2022-09-14] MEDS: Nicotine Polacrilex 2 MG GUM 4 MG BUCCAL ×3 (13:42→23:33)
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
[2022-09-14 18:00] VITALS: BP 138/96; PULSE 120; RESP 20; TEMP 36.6; O2SAT 99
[2022-09-15 07:00] VITALS: BMI 31.0
[2022-09-15 08:12] VITALS: BP 111/67; PULSE 104; RESP 16; TEMP 36.4; O2SAT 99
[2022-09-15] MEDS: OLANZapine ODT 10 MG TAB.RAPDIS 15 MG TRANSLINGU ×2 (08:34→18:16)
[2022-09-15] MEDS: chlorproMAZINE HCl 25 MG TABLET 50 MG PO ×3 (08:35→18:16)
[2022-09-15] MEDS: Nicotine Polacrilex 2 MG GUM 4 MG BUCCAL ×3 (08:44→15:08)
[2022-09-15] MEDS: diazePAM 5 MG TABLET PO (11:20)
[2022-09-15] MEDS: Acetaminophen 325 MG TABLET 650 MG PO (13:18)
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
[2022-09-15 17:45] VITALS: BP 127/66; PULSE 108
[2022-09-16 07:58] VITALS: BP 124/84; PULSE 104; RESP 16; TEMP 36.2; O2SAT 99
[2022-09-16] MEDS: OLANZapine ODT 10 MG TAB.RAPDIS 15 MG TRANSLINGU ×2 (08:28→19:14)
[2022-09-16] MEDS: chlorproMAZINE HCl 25 MG TABLET 50 MG PO ×2 (08:28→14:37)
[2022-09-16] MEDS: Nicotine Polacrilex 2 MG GUM 4 MG BUCCAL (14:37)
[2022-09-16 17:04] VITALS: BP 130/74; PULSE 116; RESP 16; TEMP 36.4; O2SAT 96
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
[2022-09-16] MEDS: chlorproMAZINE HCl 25 MG TABLET 75 MG PO (19:13)
[2022-09-17] MEDS: chlorproMAZINE HCl 25 MG TABLET 75 MG PO ×2 (08:20→18:44)
[2022-09-17] MEDS: OLANZapine ODT 10 MG TAB.RAPDIS 15 MG TRANSLINGU ×2 (08:20→18:43)
[2022-09-17 08:21] VITALS: BP 120/65; PULSE 97; RESP 14; TEMP 36.7
[2022-09-17] MEDS: Nicotine Polacrilex 2 MG GUM 4 MG BUCCAL ×2 (10:09→16:38)
[2022-09-17] MEDS: Acetaminophen 325 MG TABLET 650 MG PO (10:09)
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
[2022-09-17 18:00] VITALS: BP 128/72; PULSE 85; RESP 16; TEMP 36.6; O2SAT 98
[2022-09-18 06:00] VITALS: BP 132/68; PULSE 88; RESP 14; TEMP 36.6
[2022-09-18] MEDS: Nicotine Polacrilex 2 MG GUM 4 MG BUCCAL ×4 (07:54→21:50)
[2022-09-18] MEDS: chlorproMAZINE HCl 25 MG TABLET 75 MG PO ×2 (08:23→19:53)
[2022-09-18] MEDS: OLANZapine ODT 10 MG TAB.RAPDIS 15 MG TRANSLINGU ×2 (08:24→19:52)
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
[2022-09-18 16:28] VITALS: BP 127/83; PULSE 105; TEMP 36.3; O2SAT 96
--- NOTE | 2022-09-18 16:29 | PC.NURSE ---
Patient requested prn Thorazine, but changed her mind and refused, when offered.
[2022-09-19 08:04] VITALS: BP 118/88; PULSE 94; RESP 16; TEMP 36.8; O2SAT 98
[2022-09-19] MEDS: chlorproMAZINE HCl 25 MG TABLET 75 MG PO (08:06)
[2022-09-19] MEDS: OLANZapine ODT 10 MG TAB.RAPDIS 15 MG TRANSLINGU ×2 (08:06→19:43)
[2022-09-19] MEDS: Nicotine Polacrilex 2 MG GUM 4 MG BUCCAL ×3 (09:23→20:04)
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
[2022-09-19] MEDS: chlorproMAZINE HCl 25 MG TABLET 50 MG PO (19:44)
[2022-09-19 19:45] VITALS: BP 133/85; PULSE 104; TEMP 36; O2SAT 99
[2022-09-20] MEDS: Nicotine Polacrilex 2 MG GUM 4 MG BUCCAL ×5 (05:06→18:33)
[2022-09-20 07:56] VITALS: BP 127/84; PULSE 115; RESP 16; TEMP 36.4; O2SAT 98
[2022-09-20] MEDS: OLANZapine ODT 10 MG TAB.RAPDIS 15 MG TRANSLINGU ×2 (08:06→19:38)
[2022-09-20] MEDS: chlorproMAZINE HCl 25 MG TABLET 50 MG PO ×2 (08:06→19:35)
[2022-09-20 16:15] VITALS: BP 118/63; PULSE 113; TEMP 35.8
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
[2022-09-21] MEDS: chlorproMAZINE HCl 100 MG TABLET PO (05:04)
[2022-09-21] MEDS: chlorproMAZINE HCl 25 MG TABLET 50 MG PO ×2 (09:49→19:28)
[2022-09-21] MEDS: OLANZapine ODT 10 MG TAB.RAPDIS 15 MG TRANSLINGU ×2 (09:49→19:28)
[2022-09-21] MEDS: Nicotine Polacrilex 2 MG GUM 4 MG BUCCAL ×3 (09:52→21:12)
[2022-09-21 11:15] VITALS: BP 115/69; PULSE 118; RESP 18; TEMP 36.3; O2SAT 98
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
[2022-09-21] MEDS: bisacodyL 5 MG TABLET.DR 10 MG PO (17:28)
[2022-09-21 19:15] VITALS: BP 138/72; PULSE 113; TEMP 37.2
[2022-09-22 06:00] VITALS: BP 135/91; PULSE 94; RESP 14; TEMP 36.3; O2SAT 97
[2022-09-22] MEDS: OLANZapine ODT 10 MG TAB.RAPDIS 15 MG TRANSLINGU ×2 (08:17→18:25)
[2022-09-22] MEDS: chlorproMAZINE HCl 25 MG TABLET 50 MG PO ×2 (08:18→18:25)
[2022-09-22 08:55] LABS: Valproate 66.4 mcg/mL (50.0-100.0)
--- NOTE | 2022-09-22 09:00 | ECG_ITS ---
Test Reason : QTC CHECK Blood Pressure : / mmHG Vent. Rate : 108 BPM Atrial Rate : 108 BPM P-R Int : 122 ms QRS Dur : 076 ms QT Int : 338 ms P-R-T Axes : 053 059 041 degrees QTc Int : 452 ms Sinus tachycardia Otherwise normal ECG When compared with ECG of 26-AUG-2022 09:13, QT has lengthened Referred By: Rica Lara Electronically Signed By:Mars Bearden
[2022-09-22] MEDS: Nicotine Polacrilex 2 MG GUM 4 MG BUCCAL ×3 (10:41→17:36)
--- NOTE | 2022-09-22 13:45 | PC.NURSE ---
pt agreed to ekg. tiger text to beto.
[2022-09-22] MEDS: Milk of Magnesia 30 ML ORAL.SUSP PO (14:52)
[2022-09-22 18:00] VITALS: BP 128/82; PULSE 96; RESP 16; TEMP 36.4; O2SAT 98
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
[2022-09-23] MEDS: OLANZapine ODT 10 MG TAB.RAPDIS 15 MG TRANSLINGU ×2 (08:13→16:21)
[2022-09-23] MEDS: chlorproMAZINE HCl 25 MG TABLET 50 MG PO ×2 (08:13→16:21)
[2022-09-23 10:33] VITALS: RESP 18
[2022-09-23] MEDS: Paliperidone ER 3 MG TAB.ER.24 PO (11:11)
[2022-09-23] MEDS: Milk of Magnesia 30 ML ORAL.SUSP PO (15:04)
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
[2022-09-23] MEDS: Nicotine Polacrilex 2 MG GUM 4 MG BUCCAL ×3 (16:21→20:30)
[2022-09-23 16:41] VITALS: BP 151/77; PULSE 115
[2022-09-24] MEDS: Nicotine Polacrilex 2 MG GUM 4 MG BUCCAL ×3 (05:17→11:54)
[2022-09-24] MEDS: Paliperidone ER 3 MG TAB.ER.24 PO (08:32)
[2022-09-24] MEDS: OLANZapine ODT 10 MG TAB.RAPDIS 15 MG TRANSLINGU ×2 (08:32→18:08)
[2022-09-24] MEDS: chlorproMAZINE HCl 25 MG TABLET 50 MG PO ×2 (08:32→18:08)
[2022-09-24] MEDS: bisacodyL 5 MG TABLET.DR 10 MG PO (09:46)
[2022-09-24 17:50] VITALS: BP 115/60; PULSE 122; TEMP 36.6
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
[2022-09-25] MEDS: Paliperidone ER 3 MG TAB.ER.24 PO (08:13)
[2022-09-25] MEDS: chlorproMAZINE HCl 25 MG TABLET 50 MG PO ×2 (08:13→18:12)
[2022-09-25] MEDS: OLANZapine ODT 10 MG TAB.RAPDIS 15 MG TRANSLINGU ×2 (08:14→18:12)
[2022-09-25] MEDS: Nicotine Polacrilex 2 MG GUM 4 MG BUCCAL ×5 (08:14→18:12)
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
[2022-09-25] MEDS: Milk of Magnesia 30 ML ORAL.SUSP PO (10:28)
[2022-09-25 16:43] VITALS: BP 128/75; PULSE 118
[2022-09-26] MEDS: OLANZapine ODT 10 MG TAB.RAPDIS 15 MG TRANSLINGU ×2 (08:49→18:02)
[2022-09-26] MEDS: chlorproMAZINE HCl 25 MG TABLET 50 MG PO ×2 (08:49→18:02)
[2022-09-26] MEDS: Paliperidone ER 3 MG TAB.ER.24 PO ×2 (08:49→10:24)
[2022-09-26 08:53] VITALS: BP 136/62; PULSE 111; RESP 16; TEMP 36.7; O2SAT 96
[2022-09-26] MEDS: Nicotine Polacrilex 2 MG GUM 4 MG BUCCAL ×4 (09:19→22:17)
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
[2022-09-26 17:46] VITALS: BP 124/87; PULSE 117
[2022-09-26] MEDS: Magnesium Hydrox/Alum Hydrox 30 ML ORAL.SUSP PO (19:04)
[2022-09-27] MEDS: Nicotine Polacrilex 2 MG GUM 4 MG BUCCAL ×2 (02:38→19:18)
[2022-09-27 06:00] VITALS: RESP 14
[2022-09-27] MEDS: OLANZapine ODT 10 MG TAB.RAPDIS 15 MG TRANSLINGU ×2 (08:45→19:11)
[2022-09-27] MEDS: Paliperidone ER 6 MG TAB.ER.24 PO (08:46)
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
[2022-09-27 18:00] VITALS: BP 128/89; PULSE 86; RESP 16; TEMP 36.5; O2SAT 99
[2022-09-27] MEDS: chlorproMAZINE HCl 25 MG TABLET 50 MG PO (19:11)
[2022-09-28] MEDS: Nicotine Polacrilex 2 MG GUM 4 MG BUCCAL ×5 (03:37→22:38)
[2022-09-28] MEDS: OLANZapine ODT 10 MG TAB.RAPDIS 15 MG TRANSLINGU ×2 (08:22→20:03)
[2022-09-28] MEDS: Paliperidone ER 6 MG TAB.ER.24 PO (08:24)
[2022-09-28 08:29] VITALS: BP 131/91; PULSE 100; RESP 16; TEMP 36.6; O2SAT 98
[2022-09-28] MEDS: polyethylene glycoL 3350 17 GM POWD.PACK PO (13:40)
[2022-09-28] MEDS: Sennosides/Docusate Sodium TABLET 1 TAB PO (13:40)
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
[2022-09-28 18:00] VITALS: BP 134/82; PULSE 110; TEMP 36.3; O2SAT 98
[2022-09-28] MEDS: chlorproMAZINE HCl 25 MG TABLET 50 MG PO (20:03)
[2022-09-29 09:00] VITALS: BP 133/89; PULSE 88; RESP 18; TEMP 36.4; O2SAT 97
[2022-09-29] MEDS: polyethylene glycoL 3350 17 GM POWD.PACK PO (09:30)
[2022-09-29] MEDS: Sennosides/Docusate Sodium TABLET 1 TAB PO ×2 (09:30→18:20)
[2022-09-29] MEDS: Paliperidone ER 6 MG TAB.ER.24 PO (09:30)
[2022-09-29] MEDS: OLANZapine ODT 10 MG TAB.RAPDIS 15 MG TRANSLINGU ×2 (09:30→18:20)
[2022-09-29] MEDS: Nicotine Polacrilex 2 MG GUM 4 MG BUCCAL ×4 (09:33→18:20)
[2022-09-29] MEDS: bisacodyL 5 MG TABLET.DR 10 MG PO (14:12)
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
[2022-09-29 16:36] VITALS: BP 138/91; PULSE 107; TEMP 36.7
[2022-09-29] MEDS: chlorproMAZINE HCl 25 MG TABLET 50 MG PO (18:20)
[2022-09-30] MEDS: Nicotine Polacrilex 2 MG GUM 4 MG BUCCAL ×2 (06:19→19:03)
[2022-09-30] MEDS: polyethylene glycoL 3350 17 GM POWD.PACK PO (09:04)
[2022-09-30] MEDS: Sennosides/Docusate Sodium TABLET 1 TAB PO ×2 (09:05→18:06)
[2022-09-30] MEDS: Paliperidone ER 6 MG TAB.ER.24 PO (09:05)
[2022-09-30] MEDS: OLANZapine ODT 10 MG TAB.RAPDIS 15 MG TRANSLINGU ×2 (09:05→18:06)
[2022-09-30] MEDS: bisacodyL 5 MG TABLET.DR 10 MG PO (09:09)
[2022-09-30 12:16] VITALS: BP 129/87; PULSE 88; RESP 18; TEMP 36.2; O2SAT 97
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
[2022-09-30 18:00] VITALS: BP 136/74; PULSE 97
[2022-10-01] MEDS: Paliperidone ER 6 MG TAB.ER.24 PO (08:08)
[2022-10-01] MEDS: Sennosides/Docusate Sodium TABLET 1 TAB PO ×2 (08:08→18:30)
[2022-10-01] MEDS: OLANZapine ODT 10 MG TAB.RAPDIS 15 MG TRANSLINGU ×2 (08:08→18:30)
[2022-10-01] MEDS: Nicotine Polacrilex 2 MG GUM 4 MG BUCCAL ×3 (08:45→18:33)
[2022-10-01 08:47] VITALS: BP 114/78; PULSE 106; RESP 16; TEMP 36.8; O2SAT 97
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
[2022-10-01 18:00] VITALS: BP 104/66; PULSE 68; RESP 16; TEMP 37; O2SAT 99
[2022-10-02 07:55] VITALS: BP 132/83; PULSE 98; RESP 18; TEMP 35.8; O2SAT 97
[2022-10-02] MEDS: Sennosides/Docusate Sodium TABLET 1 TAB PO ×2 (08:00→20:41)
[2022-10-02] MEDS: Paliperidone ER 6 MG TAB.ER.24 PO (08:00)
[2022-10-02] MEDS: OLANZapine ODT 10 MG TAB.RAPDIS 15 MG TRANSLINGU ×2 (08:00→20:41)
[2022-10-02] MEDS: polyethylene glycoL 3350 17 GM POWD.PACK PO (08:01)
[2022-10-02] MEDS: Nicotine Polacrilex 2 MG GUM 4 MG BUCCAL ×4 (08:32→21:38)
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
[2022-10-02] MEDS: bisacodyL 5 MG TABLET.DR 10 MG PO (16:31)
[2022-10-02 18:00] VITALS: BP 121/75; PULSE 100; TEMP 36.1; O2SAT 98
[2022-10-03 06:00] VITALS: BP 122/58; PULSE 85; RESP 14; TEMP 36.6; O2SAT 98
[2022-10-03] MEDS: OLANZapine ODT 10 MG TAB.RAPDIS 15 MG TRANSLINGU ×2 (07:58→19:30)
[2022-10-03] MEDS: Paliperidone ER 6 MG TAB.ER.24 PO (07:58)
[2022-10-03] MEDS: Sennosides/Docusate Sodium TABLET 1 TAB PO ×2 (07:58→19:36)
[2022-10-03] MEDS: Nicotine Polacrilex 2 MG GUM 4 MG BUCCAL ×2 (08:22→16:28)
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
[2022-10-03 18:30] VITALS: BP 108/66; PULSE 89; TEMP 36.2; O2SAT 98
[2022-10-03] MEDS: Benztropine Mesylate 0.5 MG TABLET PO (19:35)
[2022-10-04] MEDS: Sennosides/Docusate Sodium TABLET 1 TAB PO ×2 (08:47→18:12)
[2022-10-04] MEDS: Benztropine Mesylate 0.5 MG TABLET PO ×2 (08:47→18:12)
[2022-10-04 09:10] VITALS: BP 122/78; PULSE 93; RESP 16; TEMP 36.6; O2SAT 98
[2022-10-04] MEDS: Paliperidone Palmitate 234 MG/1.5 ML SYRINGE IM (09:47)
[2022-10-04] MEDS: Nicotine Polacrilex 2 MG GUM 4 MG BUCCAL ×3 (10:42→18:13)
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
[2022-10-04 16:48] VITALS: BP 114/75; PULSE 98
[2022-10-04] MEDS: OLANZapine ODT 10 MG TAB.RAPDIS 5 MG TRANSLINGU (18:12)
[2022-10-05] MEDS: Paliperidone ER 3 MG TAB.ER.24 PO (08:17)
[2022-10-05] MEDS: OLANZapine ODT 10 MG TAB.RAPDIS 5 MG TRANSLINGU ×2 (08:17→20:07)
[2022-10-05] MEDS: Sennosides/Docusate Sodium TABLET 1 TAB PO ×2 (08:17→20:08)
[2022-10-05 08:34] VITALS: BP 125/59; PULSE 81; RESP 16; TEMP 36.6; O2SAT 97
[2022-10-05] MEDS: Nicotine Polacrilex 2 MG GUM 4 MG BUCCAL ×4 (09:14→20:08)
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
[2022-10-05 18:00] VITALS: BP 133/81; PULSE 105; RESP 20; TEMP 37.1; O2SAT 100
[2022-10-06 09:00] VITALS: BP 125/75; PULSE 92; RESP 18; TEMP 35.7; O2SAT 98
[2022-10-06] MEDS: Sennosides/Docusate Sodium TABLET 1 TAB PO ×2 (09:08→18:09)
[2022-10-06] MEDS: Paliperidone ER 3 MG TAB.ER.24 PO (09:08)
[2022-10-06] MEDS: Nicotine Polacrilex 2 MG GUM 4 MG BUCCAL (13:44)
[2022-10-06 16:39] VITALS: BP 162/95; PULSE 103; RESP 18; TEMP 36.8; O2SAT 95
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
[2022-10-06] MEDS: OLANZapine ODT 10 MG TAB.RAPDIS 5 MG TRANSLINGU (18:09)
[2022-10-07 06:00] VITALS: BP 110/78; PULSE 78; RESP 16; TEMP 36.6; O2SAT 98
[2022-10-07] MEDS: Paliperidone ER 3 MG TAB.ER.24 PO (08:19)
[2022-10-07] MEDS: Sennosides/Docusate Sodium TABLET 1 TAB PO ×2 (08:20→17:56)
[2022-10-07] MEDS: Nicotine Polacrilex 2 MG GUM 4 MG BUCCAL ×2 (08:36→11:21)
[2022-10-07 09:37] LABS: Alanine Aminotransferase 17 U/L (0-31); Albumin Level 4.6 g/dL (3.5-5.0); Alkaline Phosphatase 71 U/L (39-117); Anion Gap 15 (12-20); Aspartate Amino Transferase 17 U/L (5-31); Bilirubin Total 0.4 mg/dL (0.0-1.0); Blood Urea Nitrogen 15 mg/dL (9-16); Calcium 9.3 mg/dL (8.4-10.2); Carbon Dioxide 23 mmol/L (22-29); Chloride 106 mmol/L (96-108); Creatinine Clr Calc Pharmacy 78.8; Estimated Glomerular Filt Rate > 60; Glucose Random 112 mg/dL (60-115); Potassium 4.1 mmol/L (3.3-5.1); Sodium 140 mmol/L (135-145); Total Protein 7.2 g/dL (6.5-8.0)
[2022-10-07 10:05] LABS: Valproate 46.2 mcg/mL (50.0-100.0)
[2022-10-07 10:35] LABS: Basophils Percent Auto 0.5 % (0-2); Eosinophils Absolute Auto 0.2 X10*3/uL (0.0-0.4); Eosinophils Percent Auto 2.4 % (0-4); Hematocrit 39.5 % (37.0-47.0); Hemoglobin 13.4 g/dl (12.0-16.0); Imm Gran Abs Auto 0.02 X10*3/uL (0.00-0.03); Imm Gran Pct Auto 0.2 % (0.0-0.4); Lymphocytes Percent Auto 25.2 % (20-40); Mean Corpuscular HGB Conc 33.9 g/dl (31.0-35.0); Mean Corpuscular Hemoglobin 29.8 pg (27.0-33.0); Mean Platelet Volume 9.1 fL (9.4-12.3); Monocytes Absolute Auto 0.7 X10*3/uL (0.1-1.2); Monocytes Percent Auto 8.5 % (2-11); Neutrophils Absolute Auto 5.1 x10*3/uL (2.0-8.3); Neutrophils Percent Auto 63.2 % (45-73); Platelet Count 284 X10*3/uL (160-400); Red Blood Count 4.49 X10*6/uL (4.20-5.50); White Blood Count 8.1 X10*3/uL (4.8-10.8)
[2022-10-07 10:44] LABS: MANUAL DIFF FLAG NO
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
[2022-10-07] MEDS: Milk of Magnesia 30 ML ORAL.SUSP PO (16:09)
[2022-10-07] MEDS: OLANZapine ODT 10 MG TAB.RAPDIS 5 MG TRANSLINGU (17:56)
[2022-10-08] MEDS: Benztropine Mesylate 0.5 MG TABLET PO (08:49)
[2022-10-08] MEDS: Sennosides/Docusate Sodium TABLET 1 TAB PO ×2 (08:49→19:59)
[2022-10-08] MEDS: Paliperidone ER 3 MG TAB.ER.24 PO (08:49)
[2022-10-08] MEDS: bisacodyL 5 MG TABLET.DR 10 MG PO (08:49)
[2022-10-08 08:52] VITALS: BP 106/56; PULSE 87; RESP 18; TEMP 36.6; O2SAT 99
[2022-10-08] MEDS: Nicotine Polacrilex 2 MG GUM 4 MG BUCCAL ×3 (10:40→20:01)
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
[2022-10-08 18:00] VITALS: BP 133/71; PULSE 102; RESP 18; TEMP 35.8; O2SAT 99
[2022-10-08] MEDS: OLANZapine ODT 10 MG TAB.RAPDIS 5 MG TRANSLINGU (19:59)
[2022-10-08] MEDS: traZODone HCL 50 MG TABLET PO (20:00)
[2022-10-09 06:00] VITALS: BP 97/68; PULSE 88; RESP 18; TEMP 36.5; O2SAT 99
[2022-10-09] MEDS: Paliperidone ER 3 MG TAB.ER.24 PO (08:25)
[2022-10-09] MEDS: Nicotine Polacrilex 2 MG GUM 4 MG BUCCAL ×3 (09:06→18:11)
[2022-10-09] MEDS: Sennosides/Docusate Sodium TABLET 1 TAB PO ×2 (09:06→18:11)
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
[2022-10-09] MEDS: Milk of Magnesia 30 ML ORAL.SUSP PO (15:28)
[2022-10-09 15:54] VITALS: BP 112/69; PULSE 85
[2022-10-09] MEDS: OLANZapine ODT 10 MG TAB.RAPDIS 5 MG TRANSLINGU (18:11)
[2022-10-09] MEDS: traZODone HCL 50 MG TABLET PO (19:17)
[2022-10-10 06:00] VITALS: BP 98/69; PULSE 79; RESP 16; TEMP 36.4; O2SAT 98
[2022-10-10] MEDS: Sennosides/Docusate Sodium TABLET 1 TAB PO ×2 (08:15→18:07)
[2022-10-10] MEDS: Paliperidone ER 3 MG TAB.ER.24 PO (08:15)
[2022-10-10] MEDS: bisacodyL 5 MG TABLET.DR 10 MG PO (08:16)
[2022-10-10] MEDS: Nicotine Polacrilex 2 MG GUM 4 MG BUCCAL ×4 (09:14→19:58)
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
[2022-10-10 15:37] VITALS: BP 119/73; PULSE 88
[2022-10-10] MEDS: Milk of Magnesia 30 ML ORAL.SUSP PO (16:08)
[2022-10-10] MEDS: OLANZapine ODT 10 MG TAB.RAPDIS 5 MG TRANSLINGU (18:06)
[2022-10-10] MEDS: traZODone HCL 50 MG TABLET PO (18:07)
[2022-10-11 08:00] VITALS: BP 121/69; PULSE 80; RESP 18; TEMP 35.7; O2SAT 98
[2022-10-11] MEDS: Paliperidone ER 3 MG TAB.ER.24 PO (08:26)
[2022-10-11] MEDS: bisacodyL 5 MG TABLET.DR 10 MG PO (08:26)
[2022-10-11] MEDS: Sennosides/Docusate Sodium TABLET 1 TAB PO ×2 (08:26→18:33)
[2022-10-11] MEDS: Nicotine Polacrilex 2 MG GUM 4 MG BUCCAL (08:28)
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
[2022-10-11 17:10] VITALS: BP 117/70; PULSE 79; RESP 16; TEMP 36.1; O2SAT 98
[2022-10-11] MEDS: OLANZapine ODT 10 MG TAB.RAPDIS 5 MG TRANSLINGU (18:33)
[2022-10-11] MEDS: traZODone HCL 50 MG TABLET PO (18:38)
[2022-10-12 08:05] VITALS: BP 104/56; PULSE 80; RESP 18; TEMP 35.7; O2SAT 98
[2022-10-12] MEDS: Paliperidone ER 3 MG TAB.ER.24 PO (08:28)
[2022-10-12] MEDS: bisacodyL 5 MG TABLET.DR 10 MG PO (08:29)
[2022-10-12] MEDS: Sennosides/Docusate Sodium TABLET 1 TAB PO ×2 (08:29→19:19)
[2022-10-12] MEDS: Paliperidone Palmitate 156 MG/ML SYRINGE IM (10:06)
[2022-10-12] MEDS: Nicotine Polacrilex 2 MG GUM 4 MG BUCCAL (12:08)
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
[2022-10-12 17:30] VITALS: BP 111/65; PULSE 89; TEMP 35.8
[2022-10-12] MEDS: Benztropine Mesylate 0.5 MG TABLET PO (19:19)
[2022-10-12] MEDS: OLANZapine ODT 10 MG TAB.RAPDIS 5 MG TRANSLINGU (19:20)
[2022-10-13 07:00] VITALS: BMI 30.4
[2022-10-13 08:15] VITALS: BP 100/70; PULSE 90; RESP 18; TEMP 36; O2SAT 99
[2022-10-13] MEDS: Sennosides/Docusate Sodium TABLET 1 TAB PO ×2 (08:21→18:02)
[2022-10-13] MEDS: Paliperidone ER 3 MG TAB.ER.24 PO (08:21)
[2022-10-13] MEDS: bisacodyL 5 MG TABLET.DR 10 MG PO (08:22)
[2022-10-13] MEDS: Nicotine Polacrilex 2 MG GUM 4 MG BUCCAL ×2 (08:23→21:09)
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
[2022-10-13 15:41] VITALS: BP 142/72; PULSE 89; TEMP 36.1
[2022-10-13] MEDS: OLANZapine 2.5 MG TABLET PO (18:02)
[2022-10-13] MEDS: traZODone HCL 50 MG TABLET PO (18:02)
[2022-10-14 06:00] VITALS: BP 128/70; PULSE 92; TEMP 36.6
[2022-10-14] MEDS: Paliperidone ER 6 MG TAB.ER.24 PO (09:32)
[2022-10-14] MEDS: Sennosides/Docusate Sodium TABLET 1 TAB PO ×2 (09:32→17:56)
[2022-10-14] MEDS: bisacodyL 5 MG TABLET.DR 10 MG PO (09:32)
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
[2022-10-14] MEDS: Nicotine Polacrilex 2 MG GUM 4 MG BUCCAL ×3 (11:29→20:03)
[2022-10-14 16:12] VITALS: BP 120/65; PULSE 84
[2022-10-14] MEDS: OLANZapine 2.5 MG TABLET PO (17:56)
[2022-10-14] MEDS: Milk of Magnesia 30 ML ORAL.SUSP PO (20:46)
[2022-10-15 06:00] VITALS: BP 126/80; PULSE 68; RESP 16; TEMP 36.6
[2022-10-15 07:53] LABS: Valproate 52.4 mcg/mL (50.0-100.0)
[2022-10-15] MEDS: Nicotine Polacrilex 2 MG GUM 4 MG BUCCAL ×3 (08:09→18:49)
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
[2022-10-15] MEDS: Paliperidone ER 6 MG TAB.ER.24 PO (09:15)
[2022-10-15] MEDS: Sennosides/Docusate Sodium TABLET 1 TAB PO ×2 (09:15→18:49)
[2022-10-15] MEDS: bisacodyL 5 MG TABLET.DR 10 MG PO (09:16)
[2022-10-15] MEDS: OLANZapine 2.5 MG TABLET PO (18:49)
[2022-10-15] MEDS: traZODone HCL 50 MG TABLET PO (18:49)
[2022-10-15 18:56] VITALS: BP 103/69; PULSE 89; RESP 16; TEMP 36.2; O2SAT 97
[2022-10-16 06:00] VITALS: BP 100/68; PULSE 80; RESP 16; TEMP 36.6
[2022-10-16] MEDS: Paliperidone ER 6 MG TAB.ER.24 PO (08:59)
[2022-10-16] MEDS: bisacodyL 5 MG TABLET.DR 10 MG PO (08:59)
[2022-10-16] MEDS: Sennosides/Docusate Sodium TABLET 1 TAB PO ×2 (08:59→20:03)
[2022-10-16] MEDS: Nicotine Polacrilex 2 MG GUM 4 MG BUCCAL ×3 (11:06→20:05)
[2022-10-16] MEDS: Milk of Magnesia 30 ML ORAL.SUSP PO (11:06)
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
[2022-10-16 18:00] VITALS: BP 114/66; PULSE 83; RESP 18; TEMP 36.6; O2SAT 99
[2022-10-16] MEDS: traZODone HCL 50 MG TABLET PO (21:21)
[2022-10-17 06:00] VITALS: RESP 16
[2022-10-17] MEDS: bisacodyL 5 MG TABLET.DR 10 MG PO (08:06)
[2022-10-17] MEDS: Paliperidone ER 6 MG TAB.ER.24 PO (08:06)
[2022-10-17] MEDS: Sennosides/Docusate Sodium TABLET 1 TAB PO ×2 (08:06→19:59)
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
[2022-10-17] MEDS: Nicotine Polacrilex 2 MG GUM 4 MG BUCCAL ×2 (15:24→19:59)
[2022-10-17] MEDS: traZODone HCL 50 MG TABLET PO (20:03)
[2022-10-17 20:10] VITALS: BP 130/56; PULSE 87; TEMP 36.2; O2SAT 98
[2022-10-18 06:00] VITALS: RESP 16
[2022-10-18] MEDS: Paliperidone ER 6 MG TAB.ER.24 PO (08:34)
[2022-10-18] MEDS: Sennosides/Docusate Sodium TABLET 1 TAB PO ×2 (08:34→20:13)
[2022-10-18] MEDS: bisacodyL 5 MG TABLET.DR 10 MG PO (08:34)
[2022-10-18] MEDS: Nicotine Polacrilex 2 MG GUM 4 MG BUCCAL ×2 (08:35→20:14)
[2022-10-18] MEDS: OLANZapine 5 MG TABLET PO (13:12)
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
[2022-10-18 18:00] VITALS: BP 118/68; PULSE 80; RESP 18; TEMP 36.1; O2SAT 97
[2022-10-18] MEDS: traZODone HCL 50 MG TABLET PO (20:26)
[2022-10-19] MEDS: Sennosides/Docusate Sodium TABLET 1 TAB PO ×2 (09:03→18:02)
[2022-10-19] MEDS: Paliperidone ER 6 MG TAB.ER.24 PO (09:03)
[2022-10-19] MEDS: bisacodyL 5 MG TABLET.DR 10 MG PO (09:03)
[2022-10-19 09:04] VITALS: BP 110/80; PULSE 94; RESP 16; TEMP 36.4; O2SAT 97
[2022-10-19] MEDS: Nicotine Polacrilex 2 MG GUM 4 MG BUCCAL ×2 (11:39→16:19)
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
[2022-10-19 18:00] VITALS: BP 114/72; PULSE 85; RESP 16; TEMP 36.6; O2SAT 99
[2022-10-19] MEDS: traZODone HCL 50 MG TABLET PO ×2 (18:02→22:24)
[2022-10-19] MEDS: Clotrimazole 1 % Cream 15 GM TUBE 1 APPL TOPICAL (19:33)
[2022-10-20 07:00] VITALS: BMI 31.4
[2022-10-20] MEDS: Sennosides/Docusate Sodium TABLET 1 TAB PO (08:11)
[2022-10-20] MEDS: Paliperidone ER 6 MG TAB.ER.24 PO (08:11)
[2022-10-20 08:25] VITALS: BP 114/78; PULSE 74; RESP 18; TEMP 36.6; O2SAT 98
[2022-10-20] MEDS: Nicotine Polacrilex 2 MG GUM 4 MG BUCCAL (10:39)
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
== END 2022-10-20 11:10 | disposition home or self-care (01) | DRG 885 ==
LOC: HO.ED 22:16 → HO.PM5 08-26 14:28
PROVIDERS: Physician Assistant Medical; Admitting Provider Psychiatry & Neurology Psychiatry; Emergency Provider Emergency Medicine Emergency Medical Services; Visit Provider Clinical Nurse Specialist Psychiatric/Mental Health, Adult
DX: F25.0 Schizoaffective disorder, bipolar type (principal); F17.210 Nicotine dependence, cigarettes, uncomplicated; Z20.822 Contact with and (suspected) exposure to COVID-19; Z71.6 Tobacco abuse counseling; Z79.899 Other long term (current) drug therapy
CPT/HCPCS: 36415; 74018; 80053; 80143; 80164; 80179; 80307; 81001; 81003; 81025; 82077; 82565; 85025; 87635; 92950; 93005; 99285; J1200; J2060; J2426; S9485

== ENCOUNTER 2024-07-28 05:53 | Inpatient (IN) | payer MEDICARE, MEDICAID, SELFPAY ==
[2024-07-28] VITALS (12 sets, daily range): BP systolic 82–189; BP diastolic 50–115; PULSE 69–115; RESP 14–16; TEMP 36.5–36.6; O2SAT 96–98; BMI 26.4
--- NOTE | ~2024-07-28 | CT_ITS ---
CLINICAL HISTORY: altered mental status CT head without contrast Comparison: None Findings: No intra-axial mass, midline shift, hydrocephalus, or acute hemorrhage. No significant atrophy-like change or white matter disease. There is no sinus or mastoid fluid. The orbits are unremarkable. No skull fracture. IMPRESSION: 1. No acute intracranial findings. This document has been electronically signed by: Jorge Robertson MD on 07/28/2024 13:17:55
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
--- NOTE | 2024-07-28 06:26 | PC.NURSE ---
Addendum entered by Yadiel Larson 07/28/24 06:27: 3 unidentifiable pills found individually stapled in envelopes and discarded by security. Original Note: unable to obtain pulse ox during triage as pt ripping it off and yelling fucking bitch. pt changed over to gown and belongings secured for safety. 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 unable to obtain any information from patient as patient does not answer questions. follows some directions. MD Diana currently at bedside for eval.
--- NOTE | 2024-07-28 06:55 | PC.NURSE ---
pt refused po medications, multiple attempts by this RN and MD speaking with pt. per MD would like to try IM medication at this time d/t agitation refusing and medical interventions. unable to obtain vitals during medical center representative as pt ripping off pulse ox and bp cuff. care handed over to Selam DIALLO.
[2024-07-28] MEDS: OLANZapine 10 MG VIAL IM (06:57)
[2024-07-28] MEDS: Midazolam HCl 5 MG/ML VIAL 8 MG IM (06:57)
--- NOTE | 2024-07-28 07:20 | PC.NURSE ---
patient resting quietly at this time with even and unlabored respirations. patient observer at bedside for patient safety. blood work/swab obtained and sent.
[2024-07-28 07:29] LABS: MANUAL DIFF FLAG NO
[2024-07-28 07:31] LABS: Basophils Percent Auto 0.2 % (0-2); Hematocrit 34.3 % (37.0-47.0); Hemoglobin 11.8 g/dl (12.0-16.0); Imm Gran Abs Auto 0.06 X10*3/uL (0.00-0.03); Imm Gran Pct Auto 0.4 % (0.0-0.4); Lymphocytes Absolute Auto 0.9 X10*3/uL (1.2-4.9); Mean Corpuscular HGB Conc 34.4 g/dl (31.0-35.0); Mean Corpuscular Hemoglobin 29.4 pg (27.0-33.0); Mean Corpuscular Volume 85.5 fL (80.0-98.0); Mean Platelet Volume 9.1 fL (9.4-12.3); Monocytes Absolute Auto 0.8 X10*3/uL (0.1-1.2); Monocytes Percent Auto 5.4 % (2-11); Neutrophils Absolute Auto 12.4 x10*3/uL (2.0-8.3); Platelet Count 291 X10*3/uL (160-400); Red Blood Count 4.01 X10*6/uL (4.20-5.50); Red Cell Distribution Width 11.9 % (11.0-16.0); White Blood Count 14.1 X10*3/uL (4.8-10.8)
[2024-07-28 07:57] LABS: Acetaminophen LAB < 3 mcg/mL (<30); Salicylate < 5.0 mg/dL (15-30); Valproate < 12.5 mcg/mL (50.0-100.0)
[2024-07-28 08:02] LABS: Alanine Aminotransferase 12 U/L (0-31); Alkaline Phosphatase 68 U/L (39-117); Anion Gap 11 (12-20); Aspartate Amino Transferase 16 U/L (5-31); Bilirubin Direct 0.2 mg/dL (0.0-0.5); Bilirubin Total 0.4 mg/dL (0.0-1.0); Blood Urea Nitrogen 9 mg/dL (9-16); Calcium 8.6 mg/dL (8.4-10.2); Carbon Dioxide 23 mmol/L (22-29); Chloride 110 mmol/L (96-108); Creatinine Clr Calc Pharmacy 87.6; Estimated Glomerular Filt Rate > 60; Ethanol < 10 mg/dL; Glucose Random 103 mg/dL (60-115); HCG Quantitative < 2 mIU/mL; Magnesium 2.1 mg/dL (1.6-2.6); Potassium 3.6 mmol/L (3.3-5.1); Sodium 140 mmol/L (135-145); Total Protein 7.3 g/dL (6.5-8.0)
--- NOTE | 2024-07-28 08:09 | PC.NURSE ---
continues to rest quietly, provider aware of bp
[2024-07-28 08:28] LABS: Influenza A PCR NEGATIVE (Negative); Influenza B PCR NEGATIVE (Negative); Resp Syncy Virus RNA Qual PCR NEGATIVE (Negative); SARS COV2 PCR INHOUSE NEGATIVE (Negative)
--- NOTE | 2024-07-28 09:04 | MHC.EDTECH ---
this pct attempted EKG , patient continued to move and not be still while the leads were on .
--- NOTE | 2024-07-28 12:35 | MHC.CARE ---
Patient will be adult IPLOC. Section 12a placed in chart for safety.
--- NOTE | 2024-07-28 13:47 | PC.NURSE ---
attempted to speak with patient in regards to obtaining urine sample and home medications, patient not answering/responding to any questions to this RN. patient staring at ceiling and mumbling quietly
--- OUTSIDE RECORDS SUMMARY | 2024-07-28 13:48 | XMS_ITS | Referral Summary ---
Author Organization [facility] Address [address] [place] [address] Care Team Providers Care Physical Metallurgist Name Role Phone Alfredo Suarez Primary Care Provider [phone] Social History Tobacco Use Types Packs/Day Years Used Date Smoking Tobacco: Never Assessed Comments Unknown Sex and Gender Information Value Date Recorded Sex Assigned at Female 11/10/2023 3:43 PM EDT Legal Sex Female 12:52 PM EDT Gender Identity Not on file Sexual Orientation Not on file Last Filed Vital Signs Vital Sign Reading Time Taken Comments Blood Pressure 127/89 11/10/2023 4:02 PM EDT Pulse 100 11/10/2023 4:02 PM EDT Temperature 37 ??C (98.6 ??F) 11/10/2023 1:03 PM EDT Respiratory Rate 16 11/10/2023 4:02 PM EDT Oxygen Saturation 98% 11/10/2023 4:02 PM EDT Inhaled Oxygen Concentration - - Weight 59 kg (130 lb) 11/10/2023 1:03 PM EDT Height 147.3 cm (4' 10 ) 11/10/2023 1:03 PM EDT Body Mass Index 27.17 11/10/2023 1:03 PM EDT Plan of Treatment Not on file Insurance [employer] Care Teams Physical Metallurgist Relationship Specialty Start Date End Date Alfredo Suarez [address] [place] [id number] PCP - General 11/10/23
--- NOTE | 2024-07-28 15:29 | PC.NURSE ---
patient previously ambulated out of bed and attempted to leave the unit. this rn able to walk patient back into bed where she is now resting quietly. patient observer remains in place
--- NOTE | 2024-07-28 18:11 | PC.ADMIT ---
Colette was admitted to from [facility] main ED on 07/28/24 at 17:45 on a 12B for the treatment of unspecified schizophrenia and PTSD. Upon arrival, she attempted to follow this film writer into the nurse's station to get her belongings and stated I need my cheeseburger out of there . She allowed vital signs and was crying. Skin/contraband check was completed by staff. During skin check, she was cooperative with changing her top, but when asked to change her pants she suddenly became angry and stated Why can't I just keep these? and attempted to walk out of the exam room. She was asked again to change her pants and stated Fine, but that better be it . When asked about her height and weight, she ignored staff and would not get onto the scale. She refused to participate in admission interview and was brought to her room. Per ED, utox, EKG, med rec, and recheck of vitals were unable to be obtained due to refusal. Per care team assessment, Colette was BIBA due to erratic behavior and paranoia and had been knocking on people's doors reporting she was being followed. Per care team assessment, she was not responding to questions in ED and only stated you have to talk to my creative energy . She was placed on 5 min checks with unlocked bathroom.
[2024-07-29 07:45] VITALS: BP 131/66; PULSE 70; RESP 12; TEMP 36.7; O2SAT 98
--- NOTE | 2024-07-29 09:00 | PC.NURSE ---
Mason Eastman RPh at [facility] [phone]. Olanzapine ODT 5mg 1 tab daily #30 dispensed 06/27/24. Docusate 100mg daily PRN #30 dispensed 07/03/2024.
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
[2024-07-29] MEDS: OLANZapine 5 MG TABLET PO ×2 (11:07→20:40)
--- NOTE | 2024-07-29 17:20 | PC.NURSE ---
Patient submitted three day notice.
[2024-07-29 19:16] LABS: Appearance Urine Clear; Color Urine Yellow; Glucose Urine UA Negative (Negative); Leukocyte Esterase Urine Moderate (2+) (Negative); Nitrite Urine Negative (Negative); PH 6.5 (5.0-9.0); UMIC TRIGGER UACC YES; Urine Blood Negative (Negative); Urine Ketones Negative (Negative); Urine Protein Negative (Neg-Trace)
[2024-07-29 19:29] LABS: Amphetamine Screen Urine Not Detected (Not Detect); Barbiturates, Urine Not Detected (Not Detect); Benzodiazepines Screen Urine POSITIVE (Not Detect); Buprenorphine Scr Not Detected (Not Detect); Cannabinoid Screen Urine Not Detected (Not Detect); Cocaine Screen Urine POSITIVE (Not Detect); Fentanyl, urine Not Detected (Not Detect); Methadone Screen, Urine Not Detected (Not Detect); Opiate Screen Urine Not Detected (Not Detect); Oxycodone Screen Urine Not Detected (Not Detect); Phencyclidine Screen Urine Not Detected (Not Detect)
[2024-07-29 19:36] LABS: Bacteria Urine None Seen (None Seen); Hyaline Casts Urine 0-2 /LPF (0-2); RBC Urine 0-2 /HPF (0-2); UACC Culture Trigger YES
[2024-07-30] MEDS: OLANZapine 5 MG TABLET PO (08:57)
--- NOTE | 2024-07-30 09:57 | HO.PSYCHPN ---
Subjective Subjective Date of Service: 07/30/24 Reason For Visit: psychosis Subjective Notes: 3 Day Interim History: Pacing unit hallway. listening to headphones. keeping to self. Pt reports feeling fine today; guarded. She reports she signed a 3 day notice because she does not feel she needs to be inpatient and would like to return to her hotel room. Medication compliant. 3 day notice up on 08/01/24. denies SI/HI/VH/AH. Medication Compliance: Yes Side effects from medications: No Mental Status Exam Mental Status Exam Narrative: Pt is alert and oriented; behavior is cooperative and calm, guarded; dressed in casual attire; mood is described as fine ; eye contact appropriate; Speech is normal rate, low volume and not pressured; thought process is organized; Thought content is on discharge; denies SI/HI/VH/AH. Diagnostics Vital Signs (24Hr): BMI result Body Mass Index 26.4 Labs 07/28/24 07:24 07/28/24 07:24 Labs: Laboratory Results - last 48 hr 07/29/24 19:00 Urine Color Yellow Urine Appearance Clear Urine pH 6.5 Ur Specific How[place] 1.010 Urine Protein Negative Urine Glucose (UA) Negative Urine Ketones Negative Urine Blood Negative Urine Nitrite Negative Ur Leukocyte Esterase Moderate (2+) H Urine RBC 0-2 Urine WBC 6-10 H Ur Squamous Epith Cells 3-5 Urine Bacteria None Seen Hyaline Casts 0-2 Urine Opiates Screen Not Detected Ur Buprenorphine Scrn Not Detected Ur Oxycodone Screen Not Detected Urine Methadone Screen Not Detected Urine Fentanyl Screen Not Detected Ur Barbiturates Screen Not Detected Ur Phencyclidine Scrn Not Detected Ur Amphetamines Screen Not Detected U Benzodiazepines Scrn POSITIVE H Urine Cocaine Screen POSITIVE H U Marijuana (THC) Screen Not Detected Medications Medications Current Medications Acetaminophen (Acetaminophen 325 Mg Tablet) 650 mg PO Q6H PRN PRN Reason: Headache/Pain, Scale 1-10 Al Hydroxide/Mg Hydroxide (Magnesium Hydrox/Alum Hydrox 30 Ml Oral.Susp) 30 ml PO Q6H PRN PRN Reason: Heartburn/Nausea Hydroxyzine HCl (Hydroxyzine Hcl 25 Mg Tablet) 25 mg PO Q6H PRN PRN Reason: mild anxiety Magnesium Hydroxide (Milk Of Magnesia 30 Ml Oral.Susp) 30 ml PO DAILY PRN PRN Reason: Constipation Olanzapine (Olanzapine 5 Mg Tablet) 5 mg PO BID REGINE Last Admin: 07/30/24 08:57 Dose: 5 mg Olanzapine (Olanzapine 5 Mg Tablet) 5 mg PO Q4H PRN PRN Reason: agitation Trazodone HCl (Trazodone Hcl 50 Mg Tablet) 50 mg PO BEDTIME MRX1 PRN PRN Reason: Insomnia Allergies Allergies Allergy/AdvReac Type Severity Reaction Status Date / Time moxifloxacin [From Avelox] Allergy Diarrhea Unverified 07/28/24 06:25 Assessment & Plan Assessment & Plan (1) Schizoaffective disorder, bipolar type: Status: Acute Code(s): F25.0 - Schizoaffective disorder, bipolar type (2) PTSD (post-traumatic stress disorder): Status: Acute Code(s): F43.10 - Post-traumatic stress disorder, unspecified Plan Patient is a 44-year-old female with history of schizoaffective disorder who presented to ED via ambulance due to disorganized behavior and paranoia secondary to medication noncompliance. Plan: CV 15 minute safety checks Obtain collateral Continue home medications Obtain UA for U tox Encourage groups Discharge planning 07/30: Napping throughout the day. Pt continues delusional however, more organized during conversation. Pt stated, I keep doing Yoga because in my body is strong than Miles's body is strong . She denies any side effects from starting Deville; per nursing, pt did not vomit last night or this morning. She reportedly slept 6 hours last night. Continue current tx plan. Patient educated on: diagnosis and medication risk/benefits Reason for continued inpatient stay Substantial Risk for: med/psych decompensation Time Spent With Patient Time: Total time managing care of this patient today _20___ minutes.
[2024-07-30 10:30] VITALS: PULSE 71; RESP 16; O2SAT 96
[2024-07-30] MEDS: Acetaminophen 325 MG TABLET 650 MG PO (17:05)
[2024-07-30 21:34] VITALS: BP 93/50; PULSE 58; RESP 16; TEMP 36.2; O2SAT 99
[2024-07-31] MEDS: OLANZapine 5 MG TABLET PO (08:22)
--- NOTE | 2024-07-31 09:54 | HO.PSYCHPN ---
Subjective Subjective Date of Service: 07/31/24 Reason For Visit: psychosis Subjective Notes: 3 Day Interim History: Pacing unit hallway. keeping to self. Pt reports feeling good today; pt states she plans on being medication compliant when not in the hospital. Pt expressed appreciation towards T/W for treatment. 3 day notice up on 08/01/24. denies SI/HI/VH/AH. Plan to discharge home tomorrow and to have patient follow up with outpatient providers. Medication Compliance: Yes Side effects from medications: No Attending Groups: No Mental Status Exam Mental Status Exam Narrative: Pt is alert and oriented; behavior is cooperative and calm; dressed in casual attire; mood is described as good ; eye contact appropriate; Speech is normal rate, low volume and not pressured; thought process is organized; Thought content is on discharge; denies SI/HI/VH/AH. Diagnostics Vital Signs (24Hr): Vital Signs - 24 hr 07/30/24 10:30 07/30/24 21:34 Temperature 97.1 F Pulse Rate 71 58 Respiratory Rate 16 16 Blood Pressure 93/50 L Pulse Oximetry 96 99 Oxygen Delivery Method Room Air Room Air BMI result Body Mass Index 26.4 Labs 07/28/24 07:24 07/28/24 07:24 Labs: Laboratory Results - last 48 hr 07/29/24 19:00 Urine Color Yellow Urine Appearance Clear Urine pH 6.5 Ur Specific [place] 1.010 Urine Protein Negative Urine Glucose (UA) Negative Urine Ketones Negative Urine Blood Negative Urine Nitrite Negative Ur Leukocyte Esterase Moderate (2+) H Urine RBC 0-2 Urine WBC 6-10 H Ur Squamous Epith Cells 3-5 Urine Bacteria None Seen Hyaline Casts 0-2 Urine Opiates Screen Not Detected Ur Buprenorphine Scrn Not Detected Ur Oxycodone Screen Not Detected Urine Methadone Screen Not Detected Urine Fentanyl Screen Not Detected Ur Barbiturates Screen Not Detected Ur Phencyclidine Scrn Not Detected Ur Amphetamines Screen Not Detected U Benzodiazepines Scrn POSITIVE H Urine Cocaine Screen POSITIVE H U Marijuana (THC) Screen Not Detected Medications Medications Current Medications Acetaminophen (Acetaminophen 325 Mg Tablet) 650 mg PO Q6H PRN PRN Reason: Headache/Pain, Scale 1-10 Last Admin: 07/30/24 17:05 Dose: 650 mg Al Hydroxide/Mg Hydroxide (Magnesium Hydrox/Alum Hydrox 30 Ml Oral.Susp) 30 ml PO Q6H PRN PRN Reason: Heartburn/Nausea Hydroxyzine HCl (Hydroxyzine Hcl 25 Mg Tablet) 25 mg PO Q6H PRN PRN Reason: mild anxiety Magnesium Hydroxide (Milk Of Magnesia 30 Ml Oral.Susp) 30 ml PO DAILY PRN PRN Reason: Constipation Olanzapine (Olanzapine 5 Mg Tablet) 5 mg PO BID REGINE Last Admin: 07/31/24 08:22 Dose: 5 mg Olanzapine (Olanzapine 5 Mg Tablet) 5 mg PO Q4H PRN PRN Reason: agitation Trazodone HCl (Trazodone Hcl 50 Mg Tablet) 50 mg PO BEDTIME MRX1 PRN PRN Reason: Insomnia Allergies Allergies Allergy/AdvReac Type Severity Reaction Status Date / Time moxifloxacin [From Avelox] Allergy Diarrhea Unverified 07/28/24 06:25 Assessment & Plan Assessment & Plan (1) Schizoaffective disorder, bipolar type: Status: Acute Code(s): F25.0 - Schizoaffective disorder, bipolar type (2) PTSD (post-traumatic stress disorder): Status: Acute Code(s): F43.10 - Post-traumatic stress disorder, unspecified Plan Patient is a 44-year-old female with history of schizoaffective disorder who presented to ED via ambulance due to disorganized behavior and paranoia secondary to medication noncompliance. Plan: CV 15 minute safety checks Obtain collateral Continue home medications Obtain UA for U tox Encourage groups Discharge planning 07/30: Pacing unit hallway. listening to headphones. keeping to self. Pt reports feeling fine today; guarded. She reports she signed a 3 day notice because she does not feel she needs to be inpatient and would like to return to her hotel room. Medication compliant. 3 day notice up on 08/01/24. denies SI/HI/VH/AH. 07/31: Pacing unit hallway. keeping to self. Pt reports feeling good today; pt states she plans on being medication compliant when not in the hospital. Pt expressed appreciation towards T/[facility] for treatment. 3 day notice up on 08/01/24. denies SI/HI/VH/AH. Plan to discharge home tomorrow and to have patient follow up with outpatient providers. Patient educated on: diagnosis and medication risk/benefits Reason for continued inpatient stay Substantial Risk for: stable for discharge Time Spent With Patient Time: Total time managing care of this patient today _20___ minutes.
[2024-07-31 11:45] LABS: Cholesterol 134 mg/dL (<200); HDL Cholesterol 40 mg/dL (>40); LDL Cholesterol Calculated 73 mg/dL (<100); Triglycerides 106 mg/dL (<150)
[2024-07-31 20:00] VITALS: PULSE 56; RESP 16; TEMP 36.2; O2SAT 97
[2024-08-01] MEDS: OLANZapine 5 MG TABLET PO (08:23)
[2024-08-01] MEDS: Naloxone HCl Nasal TAKE HOME 4 MG SPRAY 8 MG NOSTRILALT (08:51)
--- NOTE | 2024-08-01 11:57 | P.DS_ITS ---
DS: Providers Provider Date of Service: 08/01/24 Date of admission: 07/28/24 15:31 Date of discharge: 08/01/24 Primary care physician: Unknown Physician Admitting clinician: Vera Diallo Attending physician on admission: Bruce Howe Attending physician on discharge: Bruce Howe Discharging clinician: Vera Diallo DS: Diagnosis Discharge Diagnosis (1) Schizoaffective disorder, bipolar type: Status: Acute (2) PTSD (post-traumatic stress disorder): Status: Acute DS: Medications Discharge Medications Home Medications: Home Medications ?Medication ?Instructions ?Recorded ?Confirmed docusate sodium 100 mg PO DAILY PRN Constipation 07/29/24 07/29/24 olanzapine 5 mg disintegrating 5 mg translingual DAILY 07/29/24 07/29/24 tablet Previous Rx's ?Medication ?Instructions ?Recorded benztropine 0.5 mg tablet 0.5 mg PO BID PRN eps #60 tabs 10/19/22 nicotine (polacrilex) 2 mg gum 4 mg buccal Q2H PRN Nicotine 10/19/22 Cravings #50 ea polyethylene glycol 3350 17 gram 17 g PO DAILY PRN loose stool #100 10/19/22 oral powder packet ea sennosides 8.6 mg-docusate sodium 1 tab PO BID #60 tabs 10/19/22 50 mg tablet (Senna Plus) trazodone 50 mg tablet 50 mg PO BEDTIME MRX1 PRN Insomnia 10/19/22 #60 tabs valproic acid (as sodium salt) 250 750 mg (15 mL) PO BID #900 mL 10/19/22 mg/5 mL (5 mL) oral solution Mental Status Exam Mental Status Exam Narrative: Pt is alert and oriented; behavior is cooperative and calm; dressed in casual attire; mood is described as good ; eye contact appropriate; Speech is normal rate, low volume and not pressured; thought process is organized; Thought content is on discharge; denies SI/HI/VH/AH. Data Data Completed and Pending Completed studies during hospitalization [Text1]: 07/28/24 07/28/24 07/29/24 07:24 07:25 19:00 WBC 14.1 H RBC 4.01 L Hgb 11.8 L Hct 34.3 L MCV 85.5 MCH 29.4 MCHC 34.4 RDW 11.9 Plt Count 291 MPV 9.1 L Immature Gran % (Auto) 0.4 Neut % (Auto) 88.0 H Lymph % (Auto) 6.0 L [place] % (Auto) 5.4 Eos % (Auto) 0.0 Baso % (Auto) 0.2 Lymph # (Auto) 0.9 L [place] # (Auto) 0.8 Eos # (Auto) 0.0 Baso # (Auto) 0.0 Abs Immat Gran (auto) 0.06 H Absolute Neuts (auto) 12.4 H Absolute Nucleated RBC 0.000 Nucleated RBC % (auto) 0.0 Sodium 140 Potassium 3.6 Chloride 110 H Carbon Dioxide 23 Anion Gap 11 L BUN 9 Creatinine 0.67 Estim Creat Clear Calc 87.6 Estimated GFR > 60 Random Glucose 103 Calcium 8.6 D Magnesium 2.1 Total Bilirubin 0.4 Direct Bilirubin 0.2 AST 16 ALT 12 Alkaline Phosphatase 68 Total Protein 7.3 Albumin 4.0 Triglycerides Cholesterol LDL Cholesterol, Calc HDL Cholesterol Beta HCG, Quant < 2 Urine Color Yellow Urine Appearance Clear Urine pH 6.5 Ur Specific [place] 1.010 Urine Protein Negative Urine Glucose (UA) Negative Urine Ketones Negative Urine Blood Negative Urine Nitrite Negative Ur Leukocyte Esterase Moderate (2+) H Urine RBC 0-2 Urine WBC 6-10 H Ur Squamous Epith Cells 3-5 Urine Bacteria None Seen Hyaline Casts 0-2 Salicylates < 5.0 L Urine Opiates Screen Not Detected Ur Buprenorphine Scrn Not Detected Ur Oxycodone Screen Not Detected Urine Methadone Screen Not Detected Urine Fentanyl Screen Not Detected Acetaminophen < 3 Ur Barbiturates Screen Not Detected Valproic Acid < 12.5 L Ur Phencyclidine Scrn Not Detected Ur Amphetamines Screen Not Detected U Benzodiazepines Scrn POSITIVE H Urine Cocaine Screen POSITIVE H U Marijuana (THC) Screen Not Detected Ethyl Alcohol < 10 Influenza Type A (PCR) NEGATIVE Influenza Type B (PCR) NEGATIVE RSV RNA Qual (PCR) NEGATIVE SARS-CoV-2 RNA (RT-PCR) NEGATIVE 07/31/24 11:18 WBC RBC Hgb Hct MCV MCH MCHC RDW Plt Count MPV Immature Gran % (Auto) Neut % (Auto) Lymph % (Auto) [place] % (Auto) Eos % (Auto) Baso % (Auto) Lymph # (Auto) [place] # (Auto) Eos # (Auto) Baso # (Auto) Abs Immat Gran (auto) Absolute Neuts (auto) Absolute Nucleated RBC Nucleated RBC % (auto) Sodium Potassium Chloride Carbon Dioxide Anion Gap BUN Creatinine Estim Creat Clear Calc Estimated GFR Random Glucose Calcium Magnesium Total Bilirubin Direct Bilirubin AST ALT Alkaline Phosphatase Total Protein Albumin Triglycerides 106 Cholesterol 134 LDL Cholesterol, Calc 73 HDL Cholesterol 40 L Beta HCG, Quant Urine Color Urine Appearance Urine pH Ur Specific [place] Urine Protein Urine Glucose (UA) Urine Ketones Urine Blood Urine Nitrite Ur Leukocyte Esterase Urine RBC Urine WBC Ur Squamous Epith Cells Urine Bacteria Hyaline Casts Salicylates Urine Opiates Screen Ur Buprenorphine Scrn Ur Oxycodone Screen Urine Methadone Screen Urine Fentanyl Screen Acetaminophen Ur Barbiturates Screen Valproic Acid Ur Phencyclidine Scrn Ur Amphetamines Screen U Benzodiazepines Scrn Urine Cocaine Screen U Marijuana (THC) Screen Ethyl Alcohol Influenza Type A (PCR) Influenza Type B (PCR) RSV RNA Qual (PCR) SARS-CoV-2 RNA (RT-PCR) 07/29/24 Unknown Urine clean catch - Clean Catch Midstream Urine Culture - Final Klebsiella pneumoniae DS: Summary Hospital Course Hospital Course: Patient is a 44-year-old female with history of schizoaffective disorder who presented to ED via ambulance due to disorganized behavior and paranoia secondary to medication noncompliance. Per crisis report, patient presented to ER due to erratic behavior and paranoia. Patient was knocking on another person's door and reported that she was being followed and was upset. Patient was agitated in ER and was given medication. Patient stated you have to talk to my creative energy and was continuously mumbling incoherently. Denied SI/HI/VH/AH. Appeared to be responding to internal stimuli. History of multiple inpatient psychiatric hospitalizations. Has PACT program who bring her medications daily. Patient's mother reports when she was dropping food off for patiant at the motel, she has not always been there and on occasion has been heard screaming. During admission assessment, patient presents alert and oriented x3. Calm and cooperative. Appears thought blocking at times, however denies AH/VH. Delayed responses to questions. Continuous lip-smacking during assessment. Presents paranoid, did not want the door to office to be closed. Patient stated, I was knocking on the doors for a cigarette . She reports being medication non- compliant but could not recall time frame of noncompliance. denies SI/HI. Plan: CV 15 minute safety checks Obtain collateral Continue home medications Obtain UA for U tox Encourage groups Discharge planning Pacing unit hallway. listening to headphones. keeping to self. Pt reports feeling fine today; guarded. She reports she signed a 3 day notice because she does not feel she needs to be inpatient and would like to return to her hotel room. Medication compliant. 3 day notice up on 08/01/24. denies SI/HI/VH/AH. Pacing unit hallway. keeping to self. Pt reports feeling good today; pt states she plans on being medication compliant when not in the hospital. Pt expressed appreciation towards [facility] for treatment. 3 day notice up on 08/01/24. denies SI/HI/VH/AH. Plan to discharge home tomorrow and to have patient follow up with outpatient providers. Patient reports feeling good and ready to return home. denies SI/HI/VH/AH. Plans on following up with outpatient providers. Status at Discharge Cognitive/behavioral status at discharge: Patient has insight in terms of wanting to pursue treatment. Patient has a safety plan that includes presenting to the closest ER or calling 911 if feeling unsafe. Functional status at discharge: independent ambulation Overall status at discharge: patient is back to baseline Time Spent with Patient Time attestation: Total time managing care of this patient today _20___ minutes. Time spent: Less than 30 minutes Discharge Plan Discharge Anticipated Discharge Date/Time: 08/01/24 10:30 Patient Disposition: Home, Self-Care Discharge Diagnosis: Schizoaffective d/o, PTSD Referrals: Dr. Lopes (Psychiatrist) [Other] - 08/06/24 11:00 am (PACT team nurse scheduled this appointment and PACT team will transport you to and from this appointment with your psychiatrist. ) [facility] [Provider Group] - 1 Week ([facility] was added to patients chart. Please call [phone] to schedule your follow up appt within 7-10 days of discharge.) Discharge Medications: Continued nicotine (polacrilex) 2 mg Gum 4 mg buccal Q2H PRN (Reason: Nicotine Cravings) Qty: 50 0RF benztropine 0.5 mg Tablet 0.5 mg PO BID PRN (Reason: eps) Qty: 60 0RF trazodone 50 mg Tablet 50 mg PO BEDTIME MRX1 PRN (Reason: Insomnia) Qty: 60 0RF polyethylene glycol 3350 17 gram Powder In Packet 17 g PO DAILY PRN (Reason: loose stool) Qty: 100 0RF valproic acid (as sodium salt) 250 mg/5 mL (5 mL) Solution 750 mg PO BID Qty: 900 0RF sennosides-docusate sodium [Senna Plus] 8.6-50 mg Tablet 1 tab PO BID Qty: 60 0RF olanzapine 5 mg Tablet,Disintegrating 5 mg translingual DAILY docusate sodium 100 mg PO DAILY PRN (Reason: Constipation) Discontinued paliperidone [Invega] 6 mg Tablet Extended Release 24 Hr 6 mg PO DAILY Qty: 30 0RF Invega Sustenna 234 mg/1.5 mL syringe 234 mg IM Q30D Qty: 1.5 0RF Rx Instructions: Dosage is due on November 12, 2022 Discharge Orders: Discharge Order (Routine); Ordered 08/01/24 Ordered By: Vera Diallo Diet: Regular diet Activity on Discharge: As tolerated Stand Alone Forms: Patient Portal Discharge page, Community Support Print Language: Senegalese Care Plan Goals: Maintain mood and safe behaviors Take medications as prescribed Continue to pursue sobriety Practice coping skills Continue with outpatient providers and reach out to them as needed Health Concerns: Mood stability and behaviors Sobriety Plan of Treatment: Follow up with your PCP, psychiatric provider and other outpatient providers reg arding above concerns Take medications as prescribed Assessment: Patient has insight in terms of wanting to pursue treatment. Patient has a safety plan that includes presenting to the closest ER or calling 911 if feeling unsafe. Discharge Date/Time: 08/01/24 11:30
== END 2024-08-01 11:30 | disposition home or self-care (01) | DRG 885 ==
LOC: HO.ED 16:36 → HO.PADLT16 16:56
PROVIDERS: Admitting Provider Psychiatry & Neurology Psychiatry; Emergency Provider Emergency Medicine; Responsible Provider Registered Nurse; Visit Provider Psychiatry & Neurology Psychiatry
DX: F25.0 Schizoaffective disorder, bipolar type (principal); Z59.01 Sheltered homelessness; F43.10 Post-traumatic stress disorder, unspecified; Z20.822 Contact with and (suspected) exposure to COVID-19; Z91.199 Patient's noncompliance with other medical treatment and regimen due to unspecified reason; Z79.899 Other long term (current) drug therapy
CPT/HCPCS: 0241U; 36415; 70450; 80048; 80061; 80076; 80143; 80164; 80179; 80307; 81001; 83735; 84702; 85025; 87086; 87088; 87186; 99285; J2250; J2359; S9485

== ENCOUNTER → 2024-07-28 11:59 | Outpatient (BNV) | payer MEDICARE, MEDICAID, SELFPAY | PROVIDERS: Emergency Provider Emergency Medicine; Visit Provider Radiology Vascular & Interventional Radiology | DX: R41.82 Altered mental status, unspecified (principal) | CPT/HCPCS: 70450 ==

== ENCOUNTER → 2024-07-28 15:31 | Outpatient (BNV) | payer MEDICARE, MEDICAID, SELFPAY | PROVIDERS: Admitting Provider Psychiatry & Neurology Psychiatry; Emergency Provider Emergency Medicine; Responsible Provider Registered Nurse; Visit Provider Registered Nurse | DX: F25.0 Schizoaffective disorder, bipolar type (principal); F43.11 Post-traumatic stress disorder, acute | CPT/HCPCS: 90792; 99231; 99238 ==